=== PATIENT | male | born 1950 | race Caucasian/White ===

== ENCOUNTER 2022-08-12 10:41 | Emergency (ER) | payer MEDICARE, SELFPAY ==
[2022-08-12] VITALS (11 sets, daily range): BP systolic 134–161; BP diastolic 88–127; PULSE 56–65; RESP 16; TEMP 36.2–36.6; O2SAT 95–100; BMI 25.8
--- NOTE | 2022-08-12 11:38 | CRLHL7_ITS ---
For Patients: As a result of the Cures Act, medical imaging exams and procedure reports are released immediately into your electronic medical record. You may view this report before your referring provider. If you have questions, please contact your health care provider. Indication: CLUMSY left arm clumsy and numb. Resolved. History of atrial fibrillation and TIA. Technique: Noncontrast sagittal T1 weighted, axial T2 fast spin echo, FLAIR, and diffusion weighted images of the head. Comparison: 12/18/2020 MRI Findings: Mild patchy regions of increased T2 signal within the periventricular and subcortical white matter of both cerebral hemispheres. Mild cerebral volume loss. Small focus of T2 prolongation and diffusion restriction in the right frontal lobe centrum semiovale consistent with recent ischemic infarct. There are 2 additional lesions that demonstrate faint diffusion signal abnormality and T2 shine through suggestive of chronic infarcts. No evidence of susceptibility artifact to suggest intracranial hemorrhage. Chronic lacunar infarcts in the bilateral cerebrum. No mass effect or midline shift. No hydrocephalus. No suspicious extra-axial collection or acute intracranial hemorrhage. Expected intracranial vascular flow voids are preserved. No hydrocephalus. The paranasal sinuses are clear. The orbits are unremarkable. Findings called to Dr. Hopper at 1:53 pm Impression: 1. Small focus of T2 prolongation and diffusion restriction in the right frontal lobe centrum semiovale consistent with recent ischemic infarct. 2. There are 2 additional lesions that demonstrate T2 prolongation and T2 shine through suggestive of chronic lacunar infarcts. 3. Mild supratentorial white matter changes are non-specific but statistically most likely related to small vessel ischemic disease. Mild cerebral volume loss. Dictated by Christiano Fletcher MD @ 08/12/2022 1:54:17 PM (Electronically Signed)
--- NOTE | 2022-08-12 11:40 | CRLHL7_ITS ---
For Patients: As a result of the Century Cures Act, medical imaging exams and procedure reports are released immediately into your electronic medical record. You may view this report before your referring provider. If you have questions, please contact your health care provider. Indication: Chest pain. Technique: Two-view upright PA and lateral chest x-ray. Comparison: None available Findings: Lungs clear. Heart size is normal. Haley unremarkable. No pleural fluid or pneumothorax. No significant musculoskeletal pathology is identified. Impression: Negative chest x-ray. Dictated by Arturo Burnham MD @ 08/12/2022 12:38:47 PM (Electronically Signed)
[2022-08-12 11:44] LABS: Troponin, Point-of-Care* 0.04 ng/ml (0.01-0.04)
[2022-08-12 11:47] LABS: Basophils Absolute Auto 0.04 K/uL (0.00-0.30); Basophils Percent Auto 0.7 % (0.0-3.0); Eosinophils Percent Auto 1.9 % (0.0-7.0); Hematocrit 46.2 % (37.0-53.0); Hemoglobin* 15.6 gm/dL (13.5-17.5); Immature Granulocytes Abs Auto 0.03 K/uL (0.00-0.30); Immature Granulocytes Pct Auto 0.6 %; Lymphocytes Absolute Auto 1.29 K/uL (0.90-2.90); Lymphocytes Percent Auto 24.2 % (20-44); Mean Corpuscular HGB Conc 34 gm/dL (32-36); Mean Corpuscular Hemoglobin 29 pg (26-34); Mean Corpuscular Volume 87 fL (80-100); Monocytes Percent Auto 8.2 % (0.0-11.0); Neutrophils Absolute Auto 3.44 K/uL (1.7-7.0); Neutrophils Percent Auto 64.4 % (42.0-72.0); Platelet Count* 267 K/uL (140-440); RDW Coefficient of Variation % 14.5 % (11.5-15.5); White Blood Count* 5.34 K/uL (4.50-11.00)
[2022-08-12 11:49] LABS: Slide Review Reflex No
[2022-08-12 12:03] LABS: INR 2.74 (0.91-1.10); Prothrombin Time 30.3 Seconds
--- NOTE | 2022-08-12 12:18 | ED_ITS ---
[facility] - General Adult General Date Seen: 08/12/22 Chief complaint: Chest Pain Stated complaint: Chest pain Time Seen by Provider: 08/12/22 11:21 Source: patient and family History of Present Illness [facility] narrative: Patient is a 71-year-old male who is here at the recommendation of clinic for evaluation of left arm numbness. He has a history of atrial fibrillation as well as TIA a couple of years ago. He tells me that for the past many years, even prior to his TIA, he has had bouts of pain approximately once a month, which start with a cramp in his neck which he says is severe enough to ?get your attention?. This pain will then travel down into his chest, and then either out the sides or out the back. He says when it happens he will just stop what he is doing and rest. After about 20 minutes, the symptoms will go way. It does not seem to be associated with specific activities, it can come on at any time. 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 He will get wavy lines in his vision. He will often get an associated headache, which is not severe. He does not have syncope. He had 1 of these episodes yesterday, which was typical. This was at about 4:00 p.m.. Nothing since then. This morning when he woke up at 6:00 a.m., he noted that his left arm felt numb in its entirety. He describes this as a sensation of the arm feeling like it was asleep. He thought maybe he had slept on it wrong. He does note that the arm also felt may be somewhat clumsy, although he denies overt weakness. These symptoms lasted until about 10:00 a.m.. His says that she did not notice any facial droop or difficulties with his balance, strength, or speech. He called the clinic and was advised to come in. At this time, the arm feels completely normal. He denies any current chest pain, difficulty breathing, nausea. He has not had headache. No current visual disturbances. He does take Coumadin for his atrial fibrillation. He is not able to tell when he is in atrial fibrillation. Related Data Home Medications Medication Instructions Recorded Confirmed escitalopram oxalate 20 mg tablet 20 mg PO DAILY 08/12/22 08/12/22 metoprolol succinate 25 mg 25 mg PO DAILY 08/12/22 08/12/22 tablet,extended release 24 hr nortriptyline 10 mg capsule 20 mg PO DAILY 08/12/22 08/12/22 warfarin 5 mg tablet (Jantoven) 5 mg PO DAILY 08/12/22 08/12/22 Allergies Allergy/AdvReac Type Severity Reaction Status Date / Time No Known Drug Allergies Allergy Verified 08/12/22 10:52 Review of Systems Status of ROS: Reports: 10 or more systems reviewed and unremarkable except as noted in History and below [facility] Social History Smoking Status: Never smoker Do you use any of these nicotine containing products: None Second hand tobacco smoke exposure: No How often do you have a drink containing alcohol: 4 or more times a week How many standard drinks containing alcohol do you have on a typical day: 3 or 4 How often do you have six or more drinks on one occasion: Daily or almost daily AUDIT-C Alcohol total score: 9 Non-prescribed substance use: denies use service: No Exam Narrative: Exam Narrative: Vital signs as noted above. In general, an alert, well-appearing patient. Head: Normocephalic, atraumatic. Eyes: He is blind in the left eye, that pupil is less reactive and that eye is everted. ENT: Mucous membranes are moist. Throat is normal. Tongue is midline. Neck: Supple without lymphadenopathy. Heart: Regular rate and rhythm. No murmur or rub. Lungs: Clear bilaterally. No increased work of breathing, crackles or wheezes. Abdomen: Soft and nontender. No organomegaly. Extremities: Well perfused. No edema. No calf tenderness. Pulses intact. Neurologic: Patient is alert and oriented to person and place. Speech is fluent. Face is symmetric. Moves all extremities equally. Strength is 5 5 in bilateral upper extremities. Sensation is intact to light touch. Cerebellar function is intact by finger-nose testing. Fine motor intact in bilateral upper extremities. Affect: Normal. Skin: Warm and dry. Well perfused. Const: Vital Signs, click to edit/add: Vital Signs - 24 hr 08/12/22 10:55 08/12/22 11:00 08/12/22 11:15 Temperature 97.1 F L Pulse Rate [Pulse Oximeter] 65 61 60 Respiratory Rate 16 16 16 Blood Pressure [Le ft Upper Arm] 153/110 H 153/118 H 147/99 H Pulse Oximetry 100 99 99 Oxygen Delivery Me thod Room Air Room Air Room Air 08/12/22 11:30 08/12/22 11:00 08/12/22 11:45 Temperature Pulse Rate [Pulse Oximeter] 62 58 L Respiratory Rate 16 16 Blood Pressure [Le ft Upper Arm] 161/92 H 149/101 H Pulse Oximetry 99 99 99 Oxygen Delivery Me thod Room Air Room Air 08/12/22 12:00 08/12/22 12:30 08/12/22 13:00 Temperature Pulse Rate [Pulse Oximeter] 58 L 56 L 58 L Respiratory Rate 16 16 16 Blood Pressure [Le ft Upper Arm] 145/107 H 160/108 H 155/100 H Pulse Oximetry 100 99 99 Oxygen Delivery Me thod Room Air Room Air Room Air 08/12/22 13:30 08/12/22 14:00 08/12/22 14:59 Temperature 97.8 F Pulse Rate [Pulse Oximeter] 64 56 L 58 L Respiratory Rate 16 16 16 Blood Pressure [Le ft Upper Arm] 153/127 H 139/98 H 134/88 Pulse Oximetry 95 99 99 Oxygen Delivery Me thod Room Air Room Air Room Air Documenting provider has reviewed patient's vital signs: yes Course Course Hospital Course: Following my initial evaluation, patient had an EKG which by my review showed a normal sinus rhythm. Ventricular rate of 61 beats per minute. No acute ST segment changes. Most prominent symptom I think today is his new left arm numbness which he noted on waking up this morning at 6:00 a.m.. He is seen in the ER at 11:00 a.m., with resolution of his symptoms. Therefore, he is outside the window or need for any acute treatment. His neurologic exam is normal. I do think however that it is prudent to work him up for the possibility of a new TIA. With respect to these episodes of pain in his neck and chest associated with visual disturbances, it is a little difficult to determine exactly what the se might be. I doubt that this is related to his left arm symptomatology today. He has been having these episodes for a number of years on a fairly regular basis, and there have not been any significant related symptoms previously. An initial point of care troponin was 0.04, will check a 2 hour troponin. Overall, labs are unremarkable. Second troponin is likewise negative. INR was therapeutic at 2.7. D-dimer negative. I do not think his symptoms are cardiac with regard to the neck pain that he describes. He has these visual symptoms associated with it, and I wonder whether these represent atypical migraine. He had an MRI of the brain, which I reviewed. He does appear to have some abnormal foci in the frontal lobes, discussion with the radiologist is that these represent acute to subacute areas of ischemia. Radiologist felt that 2 these areas were likely acute, 1 more subacute. He felt that these less likely to be embolic verses lacunar type small-vessel infarctions. Review of the patient's records show that he had an MR I of the brain and MRA of the head and neck in December 2020 when he was seen here he did have less than 50% stenosis of the right carotid artery at that time. MRA of the brain was unremarkable. Patient has continued to feel well without further symptoms while here in the emergency department. I did discuss his case with Dr. Iglesias at [facility]. He felt with the radiology reading of the MRI it would be reasonable to get a CT angiogram to Re visualize the vasculature in the head and neck, but did not feel that needed to be done today. He would recommend anti-platelet therapy at this time, and recommended adding aspirin. We did discuss that new oral anticoagulant plus Plavix or aspirin would be perhaps preferable to warfarin plu s aspirin from a safety standpoint. I have discussed all of this with the patient and his . He notes that Eliquis was prohibitively expensive secondary to his insurance. He has a cardiology appointment in September, discussed with them that they could see if 1 of the other new oral anticoagulants had better coverage through their insurance, and discuss possible switched to a NOAC plus Plavix or aspirin with his strategic marketing manager if so. Recommend follow-up with primary care next week so that a CT angiogram can be arranged. Dr. Iglesias did not feel that admission was needed today, outpatient workup felt to be okay as long as patient was feeling well which he is. Return to the ER at any time for recurrent symptoms or other concerns. Patient and his are comfortable with that plan. Vital Signs Vital signs: Initial Vital Signs Temperature 97.1 F L 08/12/22 10:55 Temperature Source Temporal Artery Scan 08/12/22 10:55 Pulse Rate 65 08/12/22 10:55 Pulse Rhythm 08/12/22 10:55 Pulse Strength 3+ Normal 08/12/22 10:55 Respiratory Rate 16 08/12/22 10:55 Blood Pressure 153/110 H 08/12/22 10:55 Blood Pressure Mean 124 08/12/22 10:55 Blood Pressure Position Supine 08/12/22 10:55 Pulse Oximetry 100 08/12/22 10:55 Oxygen Delivery Method 08/12/22 10:55 Vital Signs Temperature 97.1 F L 08/12/22 10:55 Pulse Rate 65 08/12/22 10:55 Respiratory Rate 16 08/12/22 10:55 Blood Pressure 153/110 H 08/12/22 10:55 Pulse Oximetry 100 08/12/22 10:55 Oxygen Delivery Method 08/12/22 10:55 Temperature 97.8 F 08/12/22 14:59 Pulse Rate 58 L 08/12/22 14:59 Respiratory Rate 16 08/12/22 14:59 Blood Pressure 134/88 08/12/22 14:59 Pulse Oximetry 99 08/12/22 14:59 Oxygen Delivery Method 08/12/22 14:59 Medical Decision Making Lab Data Labs: Lab Results 08/12/22 08/12/22 08/12/22 Range/Units 11:00 11:00 11:00 WBC 5.34 (4.50-11.00) K/uL RBC 5.30 (4.30-5.90) m/uL Hgb 15.6 (13.5-17.5) gm/dL Hct 46.2 (37.0-53.0) % MCV 87 (80-100) fL MCH 29 (26-34) pg MCHC 34 (32-36) gm/dL RDW Coeff of Denise 14.5 (11.5-15.5) % Plt Count 267 (140-440) K/uL Neut % (Auto) 64.4 (42.0-72.0) % Lymph % (Auto) 24.2 (20-44) % [place] % (Auto) 8.2 (0.0-11.0) % Eos % (Auto) 1.9 (0.0-7.0) % Baso % (Auto) 0.7 (0.0-3.0) % Neut # (Auto) 3.44 (1.7-7.0) K/uL Lymph # (Auto) 1.29 (0.90-2.90) K/uL [place] # (Auto) 0.40 (0.00-0.90) K/UL Eos # (Auto) 0.10 (0.00-0.50) K/uL Baso # (Auto) 0.04 (0.00-0.30) K/uL Abs Immat Gran (auto) 0.03 (0.00-0.30) K/uL Imm/Tot Granulo (auto) 0.6 % INR 2.74 H (0.91-1.10) D-Dimer Quant (PE/DVT) < 0.27 (0.00-0.50) ug/ml Sodium 139 (135-149) mmol/L Potassium 4.1 (3.6-5.1) mmol/L Chloride 107 (96-114) mmol/L Carbon Dioxide 25 (20-32) mmol/L BUN 16 (7-30) mg/dL Creatinine 1.0 (0.5-1.5) mg/dL Estimated Creat Clear 76.52 Estimated GFR 81 ml/min Glucose 94 (60-115) mg/dL Calcium 8.9 (8.4-10.6) mg/dL C-Reactive Protein 0.7 (0.5-1.0) mg/dL POC Troponin I (0.01-0.04) ng/ml 08/12/22 08/12/22 Range/Units 11:40 13:30 WBC (4.50-11.00) K/uL RBC (4.30-5.90) m/uL Hgb (13.5-17.5) gm/dL Hct (37.0-53.0) % MCV (80-100) fL MCH (26-34) pg MCHC (32-36) gm/dL RDW Coeff of Denise (11.5-15.5) % Plt Count (140-440) K/uL Neut % (Auto) (42.0-72.0) % Lymph % (Auto) (20-44) % [place] % (Auto) (0.0-11.0) % Eos % (Auto) (0.0-7.0) % Baso % (Auto) (0.0-3.0) % Neut # (Auto) (1.7-7.0) K/uL Lymph # (Auto) (0.90-2.90) K/uL [place] # (Auto) (0.00-0.90) K/UL Eos # (Auto) (0.00-0.50) K/uL Baso # (Auto) (0.00-0.30) K/uL Abs Immat Gran (auto) (0.00-0.30) K/uL Imm/Tot Granulo (auto) % INR (0.91-1.10) D-Dimer Quant (PE/DVT) (0.00-0.50) ug/ml Sodium (135-149) mmol/L Potassium (3.6-5.1) mmol/L Chloride (96-114) mmol/L Carbon Dioxide (20-32) mmol/L BUN (7-30) mg/dL Creatinine (0.5-1.5) mg/dL Estimated Creat Clear Estimated GFR ml/min Glucose (60-115) mg/dL Calcium (8.4-10.6) mg/dL C-Reactive Protein (0.5-1.0) mg/dL POC Troponin I 0.04 0.03 (0.01-0.04) ng/ml Discharge Plan Discharge Clinical Impression: TIA (transient ischemic attack) Patient Disposition: Home, Self-Care Condition: Stable Instructions: Transient Ischemic Attack (ED) Additional Instructions: Primary care follow-up next week. You should have a CT angiogram to evaluate the blood vessels in your head and neck. Your primary doctor can help set this up for you. Take a regular strength aspirin daily. Follow-up with your strategic marketing manager. Consider changing to a new oral anticoagulant plus aspirin or Plavix rather than Coumadin, depending on your insurance. You can discuss this with your strategic marketing manager. If at any time he have recurrent symptoms or new concerns, return to the emergency department. Prescriptions: No Action warfarin [Jantoven] 5 mg tablet 5 mg PO DAILY Label Comments: TAKE 2 TABLETS BY MOUTH EVERY TUESDAY AND 1.5 TABLETS BY MOUTH ALL OTHER DAYS IN EVENING OR DIRECTED nortriptyline 10 mg capsule 20 mg PO DAILY Label Comments: TAKE TWO CAPSULES BY MOUTH AT BEDTIME metoprolol succinate 25 mg tablet extended release 24 hr 25 mg PO DAILY Label Comments: TAKE 1 TABLET BY MOUTH ONCE DAILY escitalopram oxalate 20 mg tablet 20 mg PO DAILY Label Comments: TAKE ONE TABLET BY MOUTH EVERY DAY IN THE MORNING Follow Up/Referrals: Mark Finch MD [Primary Care Provider] - Stand Alone Forms: [email or web address] Info Instructions
[2022-08-12 12:33] LABS: Chloride* 107 mmol/L (96-114); Potassium* 4.1 mmol/L (3.6-5.1); Sodium* 139 mmol/L (135-149)
[2022-08-12 12:36] LABS: Est. Creatinine Clearance* 76.52; Estimated Glomerular Filt Rate 81 ml/min
[2022-08-12 12:37] LABS: Blood Urea Nitrogen* 16 mg/dL (7-30); Calcium* 8.9 mg/dL (8.4-10.6); Carbon Dioxide* 25 mmol/L (20-32); Glucose* 94 mg/dL (60-115)
[2022-08-12 12:40] LABS: C Reactive Protein* 0.7 mg/dL (0.5-1.0)
[2022-08-12 12:51] LABS: D Dimer Quantitative* < 0.27 ug/ml (0.00-0.50)
[2022-08-12 13:56] LABS: Troponin, Point-of-Care* 0.03 ng/ml (0.01-0.04)
--- NOTE | 2022-08-12 15:03 | PC.NURSE ---
Patient was discharged home once neurology was consulted. PIV was taken out and catheter intact. Instructions reviewed and understood by patient and his . He has f/u on tuesday with PCP. All quesitons answered and left ambulatory with .
== END 2022-08-12 15:04 | disposition home or self-care (01) ==
PROVIDERS: Emergency Provider Emergency Medicine; PCP Family Medicine
DX: G45.9 Transient cerebral ischemic attack, unspecified (principal)
CPT/HCPCS: 36415; 70551; 71046; 80048; 84484; 85025; 85379; 85610; 86140; 93005; 99285

== ENCOUNTER 2024-04-18 12:29 | Outpatient (CLI) | payer MEDICARE, SELFPAY ==
--- OUTSIDE RECORDS SUMMARY | 2024-04-18 12:34 | XMS_ITS | Referral Summary ---
Author Organization [facility] Address [address] [place] [address]. [place] [address] Care Team Providers Care Entry Tech Name Role Phone [facility] [place] Primary Care Provider Allergies No known active allergies Medications Medication Sig Dispensed Refills Start Date End Date Status atorvastatin (LIPITOR) 40 MG tablet Take 40 mg by mouth every evening 11/12/2022 Active clopidogrel (PLAVIX) 75 MG tablet Take 75 mg by mouth every evening 12/30/2022 Active escitalopram (LEXAPRO) 20 MG tablet Take 20 mg by mouth every evening 01/21/2023 Active metoprolol succinate ER (TOPROL XL) 25 MG 24 hr tablet Take 25 mg by mouth every evening 01/10/2023 Active nortriptyline (PAMELOR) 10 MG capsule Take 30 mg by mouth At Bedtime 01/21/2023 Active warfarin ANTICOAGULANT (COUMADIN) 5 MG tablet Take 5 mg by mouth every evening 11/11/2022 Active acetaminophen (TYLENOL) 500 MG tablet Take 500-1,000 mg by mouth every 6 hours as needed for mild pain Active losartan (COZAAR) 25 MG tabletIndications:NSTE MA (non-ST elevated myocardial infarction) (H),Hypertension, unspecified type Take 1 tablet (25 mg) by mouth daily for 90 days 90 tablet 02/05/2023 Active Active Problems Problem Noted Date Diagnosed Date Elevated troponin 02/01/2023 Chest pain, unspecified type 02/01/2023 CARDIOVASCULAR SCREENING; LDL GOAL LESS THAN 130 07/05/2010 HTN (hypertension) 07/21/2009 Inguinal hernia 07/21/2009 Social History Tobacco Use Types Packs/Day Years Used Date Smoking Tobacco: Every Day Cigarettes Alcohol Use Standard Drinks/Week Comments Yes 0 (1 standard drink = 0.6 oz pur e alcohol) Adolescent Education Answer Date Record ed Getting School Help Needed Not on file 06/07 Sex and Gender Information Value Date Recorded Sex Assigned at Not on file Gender Identity Not on file Sexual Orientation Not on file Last Filed Vital Signs Vital Sign Reading Time Taken Comments Blood Pressure 135/94 02/04/2023 8:03 AM CDT Pulse 73 02/04/2023 8:03 AM CDT Temperature 36.5 ??C (97.7 ??F) 02/04/2023 8:03 AM CD T Respiratory Rate 16 02/04/2023 8:03 AM CDT Oxygen Saturation 95% 02/04/2023 8:03 AM CDT Inhaled Oxygen Concentration - - Weight 91.1 kg (200 lb 13.4 oz) 02/01/2023 9:31 PM CDT Height 182.9 cm (6') 02/01/2023 9:52 PM CDT Body Mass Index 27.24 02/01/2023 9:31 PM CDT Plan of Treatment Not on file Procedures Procedure Name Priority Date/Time Associated Diagnosis Comments BASIC METABOLIC PANEL Routine 02/02/2023 6:48 AM CDT LIPID REFLEX TO DIRECT LDL PANEL Routine 02/02/2023 6:48 AM CDT from Last 3 Months or Most Recently Relevant to Health Maintenance Results * (ABNORMAL) Lipid panel reflex to direct LDL (02/02/2023 6:48 AM CDT) Cholesterol 287(H) <200 mg/dL 02/02/2023 11:19 AM CDT [facility] Triglycerides 105 <150 mg/dL 02/02/2023 11:19 AM CDT [facility] Direct Measure HDL 68 >=40 mg/dL 02/02/2023 11:19 AM CDT [facility] LDL Cholesterol Calculated 198(H) <=100 mg/dL 02/02/2023 11:19 AM CDT [facility] Non HDL Cholesterol 219(H) <130 mg/dL 02/02/2023 11:19 AM CDT [facility] Blood STRUCTURE OF LEFT UPPER LIMB / Unknown Venipuncture / Unknown 02/02/2023 6:48 AM CDT 02/02/2023 7:02 AM CDT Narrative [facility] - 02/02/2023 11:19 AM CDT Cholesterol Desirable: ??<200 mg/dL Triglycerides Normal: ??Less than 150 mg/dL Borderline High: ??150-199 mg/dL High: ??200-499 mg/dL Very High: ??Greater than or equal to 500 mg/dL Direct Measure HDL Female: ??Greater than or equal to 50 mg/dL Male: ??Greater than or equal to 40 mg/dL LDL Cholesterol Desirable: ??<100mg/dL Above Desirable: ??100-129 mg/dL Borderline High: ??130-159 mg/dL High: ??160-189 mg/dL Very High: ??>= 190 mg/dL Non HDL Cholesterol Desirable: ??130 mg/dL Above Desirable: ??130-159 mg/dL Borderline High: ??160-189 mg/dL High: ??190-219 mg/dL Very High: ??Greater than or equal to 220 mg/dL Pavan Esquivel MD LAB - BLOOD ORDERABL ES [facility] [place] [facility] [address] [facility], Room [address] [place] [id number], [facility] [phone] * (ABNORMAL) Basic metabolic panel (02/02/2023 6:48 AM CDT) Sodium 138 136 - 145 mmol/L 02/02/2023 7:50 AM [facility]T LAB[facility] Potassium 4.2 3.4 - 5.3 mmol/L 02/02/2023 7:50 AM CDT LAB[facility] Chloride 104 98 - 107 mmol/L 02/02/2023 7:50 AM CDT LABORATORY Carbon Dioxide (CO2) 23 22 - 29 mmol/L 02/02/2023 7:50 AM CDT [facility] Anion Gap 11 7 - 15 mmol/L 02/02/2023 7:50 AM CDT [facility] Urea Nitrogen 23.1(H) 8.0 - 23.0 mg/dL 02/02/2023 7:50 AM CDT [facility] Creatinine 0.93 0.67 - 1.17 mg/dL 02/02/2023 7:50 AM CDT [facility] Calcium 9.2 8.8 - 10.2 mg/dL 02/02/2023 7:50 AM CDT [facility] Glucose 103(H) 70 - 99 mg/dL 02/02/2023 7:50 AM CDT [facility] GFR Estimate 88 >60 mL/min/1.7 3m2 02/02/2023 7:50 AM CDT [facility] Comment:eGFR calculated usin 2020 CKD-EPI equation. Blood STRUCTURE OF LEFT UPPER LIMB / Unknown Venipuncture / Unknown 02/02/2023 6:48 AM CDT 02/02/2023 7:03 AM CDT Pavan Esquivel MD LAB - BLOOD ORDERABL ES [facility] [address] Lab (1st floor, no room number) [place] [address], [facility] [phone] from Last 3 Months or Most Recently Relevant to Health Maintenance Advance Directives For more information, please contact: [phone] * Full Code (Latest Code Status on File) Date Activated Date Inactivated Comments 02/01/2023 10:04 PM 02/04/2023 4:03 PM All basic an d advanced life-sustaining interventions are performed as appropriate Question Answer Comments Code status determined by: Discussion with dulce nt/ legal decision maker Care Teams Entry Tech Relationship Specialty Start Date End Date Clinic, [facility] [address] [place] [id number] PCP - General 02/01/23
--- OUTSIDE RECORDS SUMMARY | 2024-04-18 12:34 | XMS_ITS | Encounter Summary ---
Author Organization [facility] Address [facility]0 [facility] [place] [address] Care Team Providers Care Glass Blowing Instructor Name Role Phone Doctor, None Primary Care Provider Niko Peña MD Primary Care Provider [phone] Clinic, [facility] Primary Care Provider Encounter Details Date Type Department Care Team (Late st Contact Info) Description 01/20/2003 [facility] [id number] [place] [address] [phone] Starla Collazo MD [id number] [place] [address] [id number] emergency room encounter (Primary Dx) Social History Tobacco Use Types Packs/Day Years Used Date Smoking Tobacco: Every Day Cigarettes Alcohol Use Standard Drinks/Week Comments Yes 0 (1 standard drink = 0.6 oz pur e alcohol) Sex and Gender Information Value Date Recorded Sex Assigned at Not on file Gender Identity Not on file Sexual Orientation Not on file documented as of this encounter Progress Notes * 01/20/2003 11:59 PM [id number] 00:00 Emergency Department Encounter-BROOKS CLARKE () [Entered: 00:00 Director Of Mechanical Engineering (HIM)] : 54 CHIEF COMPLAINT: Left eye red. HISTORY OF PRESENT ILL NESS: Bethanie Valverde is a 52-year-old male, who presents to the Emergency Department with redness to his left eye. He states he noticed the redness today. He feels some pressure in the region, but no pain. He also notes he has been blind since the age of [age], when he fell on concrete, striking the b ack of his head. He states, the cord to the eye has been severed. The patient denies any history of trauma or foreign body sensation to the eye, and notes no fever, chills, cold symptoms, sinus drai nage, or compression. No ear discomfort or muffled hearing. PAST MEDICAL HISTORY: Remarkable for: 1. 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 2. OCD. IMMUNIZATION S: Not current. HABITS: Does use alcohol and tobacco. Denies recreational drugs, abuse of over-th e-counter medications. SOCIAL HISTORY: He is and employed. REVIEW OF SYSTEMS: Other than as noted above, all systems are unremarkable. FAMILY HISTORY: Noncontributory. PHYSICAL EXAMINATIO N: A 52-year-old male. Blood pressure 157/96, respirations 14, heart rate 72 and regular. Oxygen s aturation 99 percent. Temperature afebrile. HEENT EXAM: Head is atraumatic, normocephalic. Left e ye conjunctival hemorrhage with well-defined limit medially, radiating out in an arc to the temporal aspect of the iris. Anterior chamber appears clear. Left eye is in a lateral strabismus position. N karlo are patent. Sinus nontender. Right eye normal in appearance. Anterior chamber clear. Conjunc tivae are normal. Lids of both eyes are normal with no evidence of ocular adnexal pathology. NECK is supple. Trachea midline. No stridor, drooling, or pooling. DERMATOLOGIC EXAM: Normal texture and turgor. Mucous membranes moist. No icterus or lesions. CLINICAL IMPRESSION: 1. Conjunctival hemo rrhage, spontaneous, left eye. 2. No evidence for foreign body injury. 3. Blind eye, status post remote childhood trauma. DISPOSITION: The patient is discharged home to anticipate the eye to morales null for 7-10 days. He should direct questions to the Emergency Department, follow up with his eye doctor on Tuesday for further reassurance. He should in the meantime avoid rubbing the eye. [id number] BROOKS DAY MD MT: Document: [id number] [place], [place] Name: ABRAM, BETHANIE A EMERGENCY ROOM ENCOUNTER Page 2 of 2 LCN: [id number] DSC: 01/20/2003 [place], [place] Name: MR#: : Admit Date: BETHANIE VALVERDE -87 1950 01/20/2003 Doctor: BROOKS DAY MD EMERGENCY R OOM ENCOUNTER Page 1 of 2 Electronically filed by Anisha Basurto 02/01/2003 9:04 AM documented in this encounter Plan of Treatment Not on file documented as of this encounter Visit Diagnoses Diagnosis emergency room encounter- Primary documented in this encounter Care Teams Glass Blowing Instructor Relationship Specialty Start Date End Date Doctor, MD Jerilyn PCP - General 10/20/01 12/09/09 Niko Chatman MD [address] [place] [address] PCP - General Internal Medicine 12/10/09 01/31/23 [facility], [facility] [address] [place] [address] PCP - General 02/01/23 documented as of this encounter
--- OUTSIDE RECORDS SUMMARY | 2024-04-18 12:34 | XMS_ITS | Clinical Summary ---
Author Organization [facility] Address [address] [place] [address]. [place] [address] Care Team Providers Care Comb Tender Name Role Phone [facility] Primary Care Provider Allergies No known active [...] pain Active losartan (COZAAR) 25 MG tabletIndications:NSTE KS (non-ST elevated myocardial infarction) (H),Hypertension, unspecified type [...] 02/01/2023 9:31 PM CDT Plan of Treatment Health Maintenance Due Date Last Done Comments ADVANCE CARE PLANNING 1950 ANNUAL REVIEW OF HM ORDERS 1950 CT COLONOGRAPHY 1952 FIT 1950 FLEX SIG 1950 sDNA (Cologuard) 1950 Pneumococcal Vaccine: 65+ Years (1 of 2 - PCV) 1958 COLONOSCOPY 1962 COLORECTAL CANCER SCREENING 1962 HEPATITIS C SCREENING 1970 DTAP/TDAP/TD IMMUNIZATION (1 - Tdap) 1977 LUNG CANCER SCREENING 2002 ZOSTER IMMUNIZATION (1 of 2) 2002 RSV VACCINE ( & 60+) (1 - 1-dose 60+ series) 2012 FALL RISK ASSESSMENT 2017 MEDICARE ANNUAL WELLNESS VISIT 12/16/2022 12/16/2021 COVID-19 Vaccine ( - 2022- season) 2023 08/16/2022, 04/26/2022, 2021, Additional history exists PHQ-2 (once per calendar year) 2023 LIPID 02/03/2024 02/02/2023 INFLUENZA VACCINE (#1) 2024 GLUCOSE 02/02/2026 02/02/2023, 01/05, 02/01/2023 HPV IMMUNIZATION Aged Out No longer e ligible based on patient's age to complete this topic IPV IMMUNIZATION Aged Out No longer e ligible based on patient's age to complete this topic MENINGITIS IMMUNIZATION Aged Out No l onger eligible based on patient's age to complete this topic RSV MONOCLONAL ANTIBODY Aged Out No l onger eligible based on patient's age to complete this topic Procedures Procedure Name Priority Date/Time Associated Diagnosis [...] LAB - BLOOD ORDERABL ES [facility] [place] [facility] [address] [facility], [address] [place] [address], [facility] [phone] * (ABNORMAL) Basic metabolic panel (02/02/2023 6:48 [...] - 1.17 mg/dL 02/02/2023 7:50 AM CDT LABORATORY Calcium 9.2 8.8 - 10.2 mg/dL 02/02/2023 7:50 AM CDT LABORATORY Glucose 103(H) 70 - 99 mg/dL 02/02/2023 7:50 AM CDT LABORATORY GFR Estimate 88 >60 mL/min/1.7 3m2 02/02/2023 7:50 AM CDT LABORATORY Comment:eGFR calculated usin g 2020 CKD-EPI equation. Blood STRUCTURE OF LEFT UPPER LIMB / Unknown Venipuncture / Unknown 02/02/2023 6:48 AM CDT 02/02/2023 7:03 AM CDT Pavan Esquivel MD LAB - BLOOD ORDERABL ES [facility] [address] Lab (1st floor, no room number) [place] [address], [facility] [phone] from Last 3 Months or Most Recently Relevant to Health Maintenance Advance Directives For more information, please contact: [phone] * Full Code (Latest Code Status on File) Date Activated Date Inactivated Comments 02/01/2023 10:04 PM 02/04/2023 4:03 PM All basic an d advanced life-sustaining interventions are performed as appropriate Question Answer Comments Code status determined by: Discussion with dulce nt/ legal decision maker Care Teams Comb Tender Relationship Specialty Start Date End Date Clinic, [facility] [address] [place] [id number] PCP - General 02/01/23
--- OUTSIDE RECORDS SUMMARY | 2024-04-18 12:34 | XMS_ITS | Clinical Summary ---
Author Organization [employer] [facility] Address [place], [place] [address] Care Team Providers Care Applications Engineering Manager Name Role Phone Mark Finch MD Primary Care Provider [phone] Allergies No known active allergies Medications Medication Sig Dispensed Refills Start Date End Date Status medication order composerIndications: Takes dietary supplements Vitamin B complex- 1000 mg daily 12/05/2021 Active losartan (COZAAR) 25 mg tabletIndications:CA D in [place] artery Take 1 Tablet (25 mg) by mouth once daily. 90 Tablet 3 05/17/2023 Active metoprolol succinate (Toprol XL) 25 mg Sustained-Release tabletIndications:Is chemic stroke (HC),Other hyperlipidemia,Mixed hyperlipidemia Take 1 Tablet (25 mg) by mouth once daily. 90 Tablet 2 10/31/2023 Active clopidogreL (Plavix) 75 mg tabletIndications:Is chemic stroke (HC) Take 1 Tablet (75 mg) by mouth once daily. 90 Tablet 3 12/16/2023 Active isosorbide mononitrate (IMDUR) 30 mg extended release tablet 24 HourIndications:CAD, multiple vessel Take 1 Tablet (30 mg) by mouth once daily. 90 Tablet 3 12/16/2023 Active nitroglycerin (NITROSTAT) 0.4 mg sublingual tabletIndications:CA D, multiple vessel Place 1 Tablet (0.4 mg) under the tongue every 5 minutes if needed for Chest Pain. Take one tablet every 5 minutes. If no relief after 3 tablets call 911 25 Tablet 3 12/16/2023 Active warfarin (COUMADIN) 5 mg tabletIndications:At rial fibrillation, unspecified type (HC),Ischemic stroke (HC),Anticoagulation monitoring, INR range 2-3 Take by mouth 10 mg (5 mg x 2) every Fri; 5 mg (5 mg x 1) all other days in the evening OR as directed 03/05/2024 Active multivit with min-folic acid (Adult Multivitamin Gummies) 120 mcg chew Chew by mouth. Active sertraline (ZOLOFT) 100 mg tabletIndications:Ob sessive-compulsive disorder, unspecified type,Anxiety Take 1 Tablet (100 mg) by mouth once daily in the morning. 90 Tablet 3 04/09/2024 Active nortriptyline (PAMELOR) 10 mg capsuleIndications:C hronic insomnia TAKE 2-3 CAPSULES BY MOUTH AT BEDTIME 270 Capsule 3 04/09/2024 Active atorvastatin (LIPITOR) 40 mg tabletIndications:Hy perlipidemia, unspecified hyperlipidemia type Take 1 Tablet (40 mg) by mouth once daily. 90 Tablet 3 04/10/2024 Active nortriptyline (PAMELOR) 10 mg capsuleIndications:C hronic insomnia TAKE 2-3 CAPSULES BY MOUTH AT BEDTIME 270 Capsule 11/09/2023 4 Discontinue d(Reorder (E-cancel not sent)) atorvastatin (LIPITOR) 40 mg tabletIndications:Hy perlipidemia, unspecified hyperlipidemia type Take 1 Tablet (40 mg) by mouth once daily. 90 Tablet 3 12/16/2023 4 Discontinue d(Reorder (E-cancel not sent)) sertraline (ZOLOFT) 100 mg tabletIndications:Ob sessive-compulsive disorder, unspecified type,Anxiety TAKE ONE TABLET BY MOUTH EVERY MORNING 90 Tablet 03/08/2024 4 Discontinue d(Reorder (E-cancel not sent)) Active Problems Problem Noted Date Diagnosed Date Glenohumeral arthritis, right 03/06/2024 Atherosclerosis of [place] co ronary artery with angina pectoris, unspecified whether [place] or transplanted heart 10/19/2023 CAD, multiple vessel 10/01/2022 Nuclear senile cataract of both eyes 12/16/2021 Presbyopia 12/16/2021 Hyperopia of left eye 12/16/2021 Exotropia of left eye 12/16/2021 Vision loss, left eye 12/16/2021 Optic atrophy of left eye 12/16/2021 Mixed obsessional thoughts and acts 12/16/2021 Anxiety 12/16/2021 Atrial fibrillation, unspecified type 2021 Anticoagulation monitoring, INR range 2-3 2021 Intermittent atrial fibrillation 10/04/2021 Ischemic stroke 12/19/2020 Lymphoma 01/05/2019 Overview: 1991. 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 Epistaxis, recurrent 08/31/2016 Non-recurrent bilateral ingu inal hernia without obstruction or gangrene 03/24/2015 Mass of lip 03/24/2015 HTN (hypertension) 07/21/2009 Inguinal hernia 07/21/2009 Encounters Date Type Department Care Team Description 04/12/2024 Telephone [facility] [address] [place] [address] Mark Finch MD Procedure (CT) 04/11/2024 Orders Only [facility] Scanner 1 scan: (1-Ord) [facility] 04/10/2024 2:10 PM CDT Office Visit [facility] [address] [place] [address] Mark Finch MD Medication Management 04/10/2024 Travel 04/09/2024 11:15 AM CDT Orders Only [facility] [address] [place] [address] Lab[facility] 04/09/2024 Anticoagulation (warfarin) [facility] [address] [place] [address] Clinic[facility] Anticoagulation 04/09/2024 Nurse Triage [facility] [address] [place] [address] Mark Finch MD Medication Management 04/05/2024 Telephone [facility] [address] [place] [address] Mark Finch MD Referral (OPTOMETRY/OPHTHALMOL OGY REFERRAL FOR EYE SERVICES [[id number]]) 03/21/2024 Procedure Only [facility] [address] [place] [address] Device Check (Carelink LINQ Transmission ) 03/16/2024 11:00 AM CDT Office Visit [facility] Eye Services [address] [place] [address] Mayur Caldwell, OD Eye Exam (CEE) 03/16/2024 10:45 AM CDT Orders Only [facility] [address] [place] [address] Lab[facility] 03/16/2024 Anticoagulation (warfarin) [facility] [address] [place] [address] Clinic[facility] Anticoagulation 03/16/2024 Travel 03/07/2024 Refill [facility] [address] [place] [address] Mark Finch MD Refill Request (Sertraline) 03/06/2024 10:25 AM CDT Office Visit [facility] [address] [place] [address] Mark Finch MD Heart Problem (Chest pain); Concerns (Vision concerns/changes since medication change, x2 months) 03/05/2024 1:45 PM CDT Orders Only [facility] [address] [place] [address] Lab[facility] 03/05/2024 Anticoagulation (warfarin) [facility] [address] [place] [address] Clinic[facility] Anticoagulation 03/05/2024 Travel 02/10/2024 Refill [facility] [address] [place] [address] Mark Finch MD Refill Request (Warfarin) 01/28/2024 Anticoagulation (warfarin) [facility] [address] [place] [address] Clinic, [facility] Inr Anticoagulation 01/27/2024 2:00 PM CDT Orders Only [facility] [address] [place] [address] Lab[facility] 01/27/2024 Travel 01/20/2024 Refill [facility] [address] [place] [address] Mark Finch MD Refill Request (Warfarin) 01/20/2024 Refill [facility] [address] [place] [address] Elizabeth Galvan MD Refill Request (Atorvastatin) from Last 3 Months Immunizations Name Administration Dates Next Due COVID-19 Vaccine Spikevax (M oderna 50mcg/0.5mL) 12YO+ [id number] Formula PF 08/19/2023 COVID-19 vaccine (Moderna 100mcg/0.5mL) PF, MDV 05/06/2021,04/08/2021 COVID-19 vaccine (Moderna 50 mcg/0.5mL) 12YO+ BIVALENT PF, MDV 08/16/2022 COVID-19 vaccine (Moderna Tom marianne 50mcg/0.25mL) PF, MDV 04/26/2022,2021 Family History Medical History Relation Name Comments Alcoholism Brother Alcoholism Father Heart Disease Maternal Grandmother Heart Disease Mother Cancer Paternal Grandfather Alcoholism Sister Relation Name Status Comments Brother Father Maternal Grandmother Mother Alive Paternal Grandfather Sister Social History Tobacco Use Types Packs/Day Years Used Date Smoking Tobacco: Former Cigarettes Q uit: 2012 Passive Smoke Exposure: Past Smokeless Tobacco: Never Tobacco Cessation:Counseling Given: Not Answered Comments:of and on Alcohol Use Standard Drinks/Week Comments Yes 7 (1 standard drink = 0.6 oz pur e alcohol) 1-3 beers nightly PHQ-2 Answer Date Recorded PHQ-2 TOTAL SCORE 5 08/19/2023 Social Connections Answer Date Recorded Frequency of Communication with Friends and Fami ly 0 03/06/2024 Financial Resource Strain Answer Date R ecorded Difficulty of Paying Living Expenses 3 03/06/2024 Difficulty of Paying Living Expenses Not on file 03/06/2024 Food Insecurity Answer Date Recorded Worried About Running Out of Food in the Last Ye ar 1 03/06/2024 Transportation Needs Answer Date Record ed Lack of Transportation (Medical) 1 03/06/2024 Housing Stability Answer Date Recorded Unable to Pay for Housing in the Last Year 1 03/06/2024 Sex and Gender Information Value Date Recorded Sex Assigned at Not on file Gender Identity Not on file Sexual Orientation Not on file Obstetrics History Last Filed Vital Signs Vital Sign Reading Time Taken Comments Blood Pressure 130/88 04/10/2024 2:20 PM CDT Pulse 59 04/10/2024 2:20 PM CDT Temperature 36.1 ??C (97 ??F) 11/02/2022 12:46 PM LEAD GENERATION SPECIALIST Respiratory Rate 22 04/09/2024 12:00 PM CDT Oxygen Saturation 99% 04/10/2024 2:20 PM CDT Inhaled Oxygen Concentration - - Weight 93.3 kg (205 lb 9.6 oz) 04/10/2024 2:20 P M CDT Height 179.5 cm (5' 10.67) 12/05/2023 10:57 AM CDT Body Mass Index 28.94 12/05/2023 10:57 AM CDT Plan of Treatment Upcoming Encounters Date Type Department Care Team (Late st Contact Info) Description 06/21/2024 Procedure Only [facility] [address] [place] [phone] 07/17/2024 1:30 PM LEAD GENERATION SPECIALIST Office Visit [facility] [address] [place] [phone] Doris Schilling MBBS [address] [place], [place] [phone] Health Maintenance Due Date Last Done Comments Pneumococcal series for age 65+ (1 of 2 - PCV) 1958 Tdap 1963 Hepatitis C screening for ag e 18-79 1970 Zoster (shingles) series for age 50+ (1 of 2) 1971 Tetanus booster 1972 Colonoscopy through age 75 1997 COVID-19 vaccine series (2022- season) 2023 08/19/2023, 08/16/2022, 04/26/2022, Additional history exists Influenza for age 65+ 05/06/2024 Depression screening for age 12+ 08/19/2024 08/19/2023, 03/04/2023, 02/19/2022, Additional history exists Medicare Wellness for age 65+ 08/19/2024, 12/16/2021, 01/05/2019 BMI (ht and wt on same day) for age 18+ 12/04/2024 12/05/2023, 08/19/2023, 06/07/2023, Additional history exists Lipids for age 45-75 10/08/2027 10/08/2022, 01/29/2022, 11/02/2021, Additional history exists AAA screening age 65-74 Completed 03/16/2023 Procedures Procedure Name Priority Date/Time Associated Diagnosis Comments SCAN-EYE EXAM 04/11/2024 12:00 AM CDT INR,POCT Routine 04/09/2024 11:41 AM CDT Atrial fibrillation, unspecified type (HC) Ischemic stroke (HC) Anticoagulation monitoring, INR range 2-3 INR,POCT Routine 03/16/2024 10:41 AM CDT Atrial fibrillation, unspecified type (HC) Ischemic stroke (HC) Anticoagulation monitoring, INR range 2-3 INR,POCT Routine 03/05/2024 1:40 PM CDT Atrial fibrillation, unspecified type (HC) Ischemic stroke (HC) Anticoagulation monitoring, INR range 2-3 INR,POCT Routine 01/27/2024 2:13 PM CDT Atrial fibrillation, unspecified type (HC) Ischemic stroke (HC) Anticoagulation monitoring, INR range 2-3 US ABD AORTA SCREENING Routine 03/16/2023 9:27 AM CDT Screening for AAA (abdominal aortic aneurysm) LC LIPID PANEL AND CHOL/HDL RATIO Routine 10/08/2022 2:46 PM LEAD GENERATION SPECIALIST Mixed hyperlipidemia Other hyperlipidemia from Last 3 Months or Most Recently Relevant to Health Maintenance Results * SCAN-EYE EXAM (04/11/2024 12:00 AM CDT) Scanner OTHER * (ABNORMAL) INR,POCT (04/09/2024 11:41 AM CDT) Only the most recent of4 resultswithin the time period is included. INR 1.6(H) <1.3 04/09/2024 11:47 AM CDT [facility] Blood BLOOD SPECIMEN / Unknown Capillary / Unknown 04/09/2024 11:41 AM CDT 04/09/2024 11:41 AM CDT Narrative [facility] - 04/09/2024 11:47 AM CDT ?Therapeutic Range 2.0-3.0 for most anticoagulated patients 2.5-3.5 or 4.0 for high risk patients Mark Finch MD LABORATORY Performing Organization Address City/State/[facility] Co de Phone Number [facility] [address] [place] [address], * US ABD AORTA SCREENING (03/16/2023 9:27 AM CDT) Anatomical Region Laterality Modality Abdomen, AORTA Ultrasound 03/16/2023 9:27 AM CDT Impressions 03/16/2023 9:36 AM CDT 1. ??No abdominal aortic aneurysm. Narrative 03/16/2023 9:36 AM CDT For Patients: As a result of the Cures Act, medical imaging exams and procedure reports are released immediately into your electronic medical record. You may view this report before your referring provider. If you have questions, please contact your health care provider. EXAM: US ABD AORTA SCREENING LOCATION: [facility] DATE: 03/16/2023 INDICATION: Screening For Aaa (abdominal Aortic Aneurysm) COMPARISON: None. TECHNIQUE: Transverse and longitudinal images of the aorta. Color flow and spectral Doppler with waveform analysis. FINDINGS: No abdominal aortic aneurysm. ??There is mild atheromatous plaque in the abdominal aorta. MEASUREMENTS: Proximal Aorta: 2.8 x 2.8 cm. Mid Aorta: 2.2 x 2.2 cm. Distal Aorta: 1.4 x 1.6 cm. Right Common Iliac Artery: 1.0 x 0.9 cm. Left Common Iliac Artery: 0.9 x 1.0 cm. Procedure Note Fco Jackson MD - 03/16/2023 For Patients: As a result of the Cures Act, medical imagingexams and procedure reports are released immediately into your electronicmedical record. You may view this report before your referring provider.If you have questions, please contact your health care provider. EXAM: US ABD AORTA SCREENING LOCATION: [facility] DATE: 03/16/2023 INDICATION: Screening For Aaa (abdominal Aortic Aneurysm) COMPARISON: None. TECHNIQUE: Transverse and longitudinal images of the aorta. Color flow andspectral Doppler with waveform analysis. FINDINGS: No abdominal aortic aneurysm. There is mild atheromatous plaquein the abdominal aorta. MEASUREMENTS: Proximal Aorta: 2.8 x 2.8 cm. Mid Aorta: 2.2 x 2.2 cm. Distal Aorta: 1.4 x 1.6 cm. Right Common Iliac Artery: 1.0 x 0.9 cm. Left Common Iliac Artery: 0.9 x 1.0 cm. IMPRESSION: 1. No abdominal aortic aneurysm. Savanah ALBARADO US * (ABNORMAL) LC LIPID PANEL AND CHOL/HDL RATIO (10/08/2022 2:46 PM LEAD GENERATION SPECIALIST) [facility] Cholesterol, Total 370(H) 100 - 199 mg/dL 10/11/2022 6:07 PM LEAD GENERATION SPECIALIST [facility] Triglycerides 194(H) 0 - 149 mg/dL 10/11/2022 6:07 PM LEAD GENERATION SPECIALIST [facility] HDL Cholesterol 69 >39 mg/dL 3 6:07 PM [facility] ([facility]) VLDL Cholesterol Rikki 39 5 - 40 mg/dL 10/11/2022 6:07 PM [facility] LDL Chol Calc ([facility]) 262(H) 0 - 99 mg/dL 10/11/2022 6:07 PM [facility] Lipid Comment: Comment 10/11/2022 6:07 PM [facility] Comment: Possible Familial Hypercholesterolemia. FH should be suspected when fasting LDL cholesterol is above 189 mg/dL or non-HDL cholesterol is above 219 mg/dL. A family history of high cholesterol and heart disease in 1st degree relatives should be collected. J Clin Lipidol 2011;5:133-140 T. Chol/HDL Ratio 5.4(H) 0.0 - 5.0 ratio 10/11/2022 6:07 PM [facility] Comment: ?T. Chol/HDL Ratio ?Men ??Women ?1/2 Avg.Risk ??3.4 ?3.3 ?Avg.Risk ??5.0 ?4.4 ? 2X Avg.Risk ??9.6 ?7.1 ? 3X Avg.Risk 23.4 ?? 11.0 Blood BLOOD SPECIMEN / Unknown Venipuncture / Unknown 10/08/2022 2:46 PM LEAD GENERATION SPECIALIST 10/08/2022 2:46 PM LEAD GENERATION SPECIALIST Narrative [facility] - 10/11/2022 6:07 PM LEAD GENERATION SPECIALIST Performed at: ??[address] - [address] ??[id number] [employer] Sales Associate: Sidney Kim MD, Phone: ??[phone] Elizabeth Galvan MD SEND OUTS [facility] ([facility]) [address] [place] [address], from Last 3 Months or Most Recently Relevant to Health Maintenance Advance Directives Documents on File Type Date Recorded Patient Inspector [employer] Wafer Expl anation Healthcare Directive 09/29/2022 023 * Full Code (Latest Code Status on File) Date Activated Date Inactivated Comments 10/22/2022 2:39 PM 10/22/2022 8:19 PM Question Answer Comments Code Status Discussion: Reviewed Preferences Care Teams Applications Engineering Manager Relationship Specialty [place] [address] [place] [address] PCP - General Family Practice 11/30/21
--- NOTE | 2024-04-18 13:00 | CRLHL7_ITS ---
For Patients: As a result of the Century Cures Act, medical imaging exams and procedure reports are released immediately into your electronic medical record. You may view this report before your referring provider. If you have questions, please contact your health care provider. INDICATION: Shortness of breath. History of lymphoma. TECHNIQUE: Noncontrast CT images of the chest. COMPARISON: Chest radiographs 08/12/2022. FINDINGS: No focal consolidation, pleural effusion, or pneumothorax. Solid 4 mm nodule right lower lobe (series 3 image 63). Solid 2 mm nodule left lower lobe (series 3 image 63). The heart size is normal. No pericardial effusion. Coronary artery atherosclerotic calcifications. No mediastinal or hilar lymphadenopathy. Aneurysmal dilatation of the ascending thoracic aorta measuring 4.6 cm. Limited images through the upper abdomen are unremarkable. Multilevel thoracic spondylosis. Diffuse idiopathic skeletal hyperostosis. No aggressive osseous lesions. IMPRESSION: 1. No acute abnormality in the chest. No pathologically enlarged lymph nodes. 2. Aneurysmal dilatation of the ascending thoracic aorta. 3. Solid 4 mm pulmonary nodule in the right lower lobe. Follow-up chest CT could be considered in 12 months. Please note that all CT scans at this facility use dose modulation, iterative reconstruction, and/or weight-based dosing when appropriate to reduce radiation dose to as low as reasonably achievable. Dictated by Torrey Frank MD @ 04/18/2024 5:35:07 PM (Electronically Signed)
== END 2024-04-18 12:30 | disposition home or self-care (01) ==
PROVIDERS: PCP Family Medicine; Visit Provider Family Medicine
DX: R06.02 Shortness of breath (principal); I71.21 Aneurysm of the ascending aorta, without rupture; R91.8 Other nonspecific abnormal finding of lung field; C85.90 Non-Hodgkin lymphoma, unspecified, unspecified site; Z87.891 Personal history of nicotine dependence
CPT/HCPCS: 71250

== ENCOUNTER 2025-01-05 11:42 | Emergency (ER) | payer MEDICARE, SELFPAY ==
[2025-01-05] VITALS (11 sets, daily range): BP systolic 126–151; BP diastolic 86–98; PULSE 53–57; RESP 10–29; TEMP 35.9; O2SAT 80–99; BMI 27.9
--- OUTSIDE RECORDS SUMMARY | 2025-01-05 11:45 | XMS_ITS | Encounter Summary ---
Author Organization [place] Address [facility] [place] [address] Care Team Providers Care Aerosol Line Operator Name Role Phone Doctor, None Primary Care Provider Niko Peña MD Primary Care Provider [phone] Clinic, [facility] Primary Care Provider Encounter Details Date Type Department Care Team (Late st Contact Info) Description 01/20/2003 [facility] [id number] [place] [phone] [place]azo MD [id number] [place] [phone] emergency room encounter (Primary Dx) Social History Tobacco Use Types Packs/Day Years Used Date Smoking Tobacco: Every Day Cigarettes Alcohol Use Standard Drinks/Week Comments Yes 0 (1 standard drink = 0.6 oz pur e alcohol) Sex and Gender Information Value Date Recorded Sex Assigned at Not on file Legal Sex Male 2:58 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 [...] eye. [id number] BROOKS DAY MD [place]: Document: [id number] [place], [place] Name: BETHANIE VALVERDE EMERGENCY ROOM ENCOUNTER Page 2 of 2 LCN: [id number] DSC: 01/20/2003 [place], [place] Name: MR#: : Admit Date: BETHANIE VALVERDE [id number] 01/20/2003 Doctor: BROOKS DAY MD EMERGENCY R OOM ENCOUNTER Page 1 of 2 Electronically filed by Anisha Basurto 02/01/2003 9:04 AM documented in this encounter Plan of Treatment Not on file documented as of this encounter Visit Diagnoses Diagnosis emergency room encounter- Primary documented in this encounter Care Teams Aerosol Line Operator Relationship Specialty Start Date End Date Doctor, MD Jerilyn PCP - General 10/20/01 12/09/09 Niko Chatman MD [address] [place] [address] PCP - General Internal Medicine 12/10/09 01/31/23 Bella Garcia [address] [place] [address] PCP - General 02/01/23 documented as of this encounter
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
--- OUTSIDE RECORDS SUMMARY | 2025-01-05 11:45 | XMS_ITS | Clinical Summary ---
Author Organization [facility] Address [address] [place] [address]. [place] [address] Care Team Providers Care Meat Packer Name Role Phone [facility] [place] Primary Care Provider Allergies No known active allergies Medications atorvastatin (LIPITOR) 40 MG tablet Take 40 mg by mouth every evening 3 Active clopidogrel (PLAVIX) 75 MG tablet Take 75 mg by mouth every evening 3 Active escitalopram (LEXAPRO) 20 MG tablet Take 20 mg by mouth every evening 3 Active metoprolol succinate ER (TOPROL XL) 25 MG 24 hr tablet Take 25 mg by mouth every evening 3 Active nortriptyline (PAMELOR) 10 MG capsule Take 30 mg by mouth At Bedtime 3 Active warfarin ANTICOAGULANT (COUMADIN) 5 MG tablet Take 5 mg by mouth every evening 3 Active acetaminophen (TYLENOL) 500 MG tablet Take 500-1,000 mg by mouth every 6 hours as needed for mild pain Active losartan (COZAAR) 25 MG tabletIndications: NSTEMI (non-ST elevated myocardial infarction) (H),Hypertension, unspecified type Take 1 tablet (25 mg) by mouth daily for 90 days 90 tablet 3 Active Active Problems Problem Noted Date Diagnosed [...] on file Legal Sex Male 2:58 AM MEAT PACKER Gender Identity Not on file Sexual Orientation Not on file Last Filed Vital Signs Vital Sign Reading Time Taken Comments Blood Pressure 135/94 02/04/2023 8:03 AM CDT Pulse 73 02/04/2023 8:03 AM CDT Temperature 36.5 C (97.7 F) 02/04/2023 8:03 AM CDT Respiratory Rate 16 02/04/2023 8:03 AM CDT [...] 1952 FLEX SIG 1952 sDNA (Cologuard) 1952 COLONOSCOPY 1962 COLORECTAL CANCER SCREENING 1962 HEPATITIS C SCREENING 1970 Pneumococcal Vaccine: 50+ Years (1 of 2 - PCV) 1971 DTAP/TDAP/TD IMMUNIZATION (1 - Tdap) 1977 LUNG CANCER SCREENING 2002 ZOSTER IMMUNIZATION (1 of 2) 2002 RSV VACCINE (1 - Risk 60-74 years 1-dose series) 2012 FALL RISK ASSESSMENT 2017 MEDICARE ANNUAL WELLNESS VISIT 12/16/2022 12/16/2021 BMP 02/03/2024 02/02/2023, 02/01/2023 LIPID 02/03/2024 02/02/2023 COVID-19 Vaccine ( season) 2024 08/16/2022, 04/26/2022, 2021, Additional history exists PHQ-2 (once per calendar year) 2024 INFLUENZA VACCINE (Season Ended) 2025 DIABETES SCREENING 02/02/2026 02/02/2023, 0 02/02/2023, 02/01/2023 HPV IMMUNIZATION Aged Out No longer e ligible based on patient's age to complete this topic MENINGITIS IMMUNIZATION Aged Out No l onger eligible based on patient's age to complete this topic Procedures Procedure Name Priority Date/Time Associated Diagnosis Comments LIPID REFLEX TO DIRECT LDL PANEL Routine 02/02/2023 6:48 AM CDT BASIC METABOLIC PANEL Routine 02/02/2023 6:48 AM CDT from [...] - 02/02/2023 11:19 AM CDT Cholesterol Desirable: <200 mg/dL Triglycerides Normal: Less than 150 mg/dL Borderline High: 150-199 mg/dL High: 200-499 mg/dL Very High: Greater than or equal to 500 mg/dL Direct Measure HDL Female: Greater than or equal to 50 mg/dL Male: Greater than or equal to 40 mg/dL LDL Cholesterol Desirable: <100mg/dL Above Desirable: 100-129 mg/dL Borderline High: 130-159 mg/dL High: 160-189 mg/dL Very High: >= 190 mg/dL Non HDL Cholesterol Desirable: 130 mg/dL Above Desirable: 130-159 mg/dL Borderline High: 160-189 mg/dL High: 190-219 mg/dL Very High: Greater than or equal to 220 mg/dL Pavan Esquivel MD LAB - BLOOD ORDERABLES Final Res ult U LABORATORY [facility] [place] [facility] [address] [facility], [address] [place] [id number], [facility] [phone] * (ABNORMAL) Basic metabolic panel (02/02/2023 6:48 AM CDT) [facility] Sodium 138 136 - 145 mmol/L 02/02/2023 [...] AM CDT [facility] Comment:eGFR calculated usin g 2020 CKD-EPI equation. Blood STRUCTURE OF LEFT UPPER LIMB / Unknown Venipuncture / Unknown 02/02/2023 6:48 AM CDT 02/02/2023 7:03 AM CDT Pavan Esquivel MD LAB - BLOOD ORDERABLES Final Res ult [facility] [address] (1st floor, no room number) [place] [address], [facility] [phone] from Last 3 Months or Most Recently Relevant to Health Maintenance Insurance [facility] MEDICARE Advance Directives For more information, please contact: [phone] * Full Code (Latest Code Status on File) Date Activated Date Inactivated Comments 02/01/2023 10:04 PM 02/04/2023 4:03 PM All basic an d advanced life-sustaining interventions are performed as appropriate Question Answer Comments Code status determined by: Discussion with dulce nt/ legal decision maker Care Teams Meat Packer Relationship Specialty Start Date End Date Clinic, [facility] [address] [place] [address] PCP - General 02/01/23
--- NOTE | 2025-01-05 12:22 | CRLHL7_ITS ---
For Patients: As a result of the Century Cures Act, medical imaging exams and procedure reports are released immediately into your electronic medical record. You may view this report before your referring provider. If you have questions, please contact your health care provider. Indication: Vertigo. Technique: Noncontrast CT images of the brain. Comparison: MRI brain 08/12/2022. Findings: Mild diffuse cerebral volume loss. No mass effect or midline shift. Ernst-white differentiation is maintained. No acute intracranial hemorrhage or pathologic extra-axial fluid collection. Suggested mild chronic microvascular ischemic changes. Intracranial atherosclerotic calcifications. Thinning of the right ocular lens. No calvarial fracture. The paranasal sinuses and mastoid air cells are clear. Impression: No acute intracranial hemorrhage or mass effect. Please note that all CT scans at this facility use dose modulation, iterative reconstruction, and/or weight-based dosing when appropriate to reduce radiation dose to as low as reasonably achievable. Dictated by Torrey Frank MD @ 01/05/2025 1:11:23 PM (Electronically Signed)
--- NOTE | 2025-01-05 12:23 | ED.DIZZY ---
HPI - Dizziness General Chief Complaint: Dizziness/Vertigo Stated Complaint: Not feeling well Time Seen by Provider: 01/05/25 11:49 History of Present Illness HPI Narrative: This 74-year-old male comes in reporting vertigo symptoms have began yesterday. He states that he has significant symptoms if he is up and about and moving his head but has no symptoms if he is remaining still in a lying position. He does not report any hearing changes. Does not have any unilateral neurologic deficits. He arrives here with normal vital signs. Related Data Home Medications ?Medication ?Instructions ?Recorded ?Confirmed escitalopram oxalate 20 mg tablet 20 mg PO DAILY 08/12/22 01/05/25 metoprolol succinate 25 mg 25 mg PO DAILY 08/12/22 01/05/25 tablet,extended release 24 hr nortriptyline 10 mg capsule 20 mg PO DAILY 08/12/22 01/05/25 warfarin 5 mg tablet (Jantoven) 5 mg PO DAILY 08/12/22 01/05/25 atorvastatin 40 mg tablet 40 mg PO DAILY 01/05/25 01/05/25 clopidogrel 75 mg tablet 75 mg PO DAILY 01/05/25 01/05/25 isosorbide mononitrate 30 mg 30 mg PO DAILY 01/05/25 01/05/25 tablet,extended release 24 hr losartan 25 mg tablet 25 mg PO DAILY 01/05/25 01/05/25 sertraline 100 mg tablet 100 mg PO QAM 01/05/25 01/05/25 Previous Rx's ?Medication ?Instructions ?Recorded meclizine 25 mg tablet 25 mg PO QID #20 tabs 01/05/25 ondansetron HCl 4 mg tablet 4 mg PO Q6H #10 tabs 01/05/25 Allergies Allergy/AdvReac Type Severity Reaction Status Date / Time No Known Drug Allergies Allergy Verified 08/12/22 10:52 Review of Systems Status of ROS: Reports: 10 or more systems reviewed and unremarkable except as noted in History and below Narrative: Constitutional: No fevers, no weight gain or loss. Eyes: No discharge. No vision changes. HENT: No congestion, no sore throat, no ear pain. Cardiovascular: No chest pain, no palpitations. Respiratory: No shortness of breath, no wheezes, no cough. Gastrointestinal: No abdominal pain, no vomiting, no diarrhea. Genitourinary: No dysuria, no hematuria. Musculoskeletal: Normal range of motion. Skin: No rashes, no pruritis. Neurological: No weakness, sensory change, speech change. Vertigo symptoms as described above. Endo/Heme/Allergies: No bruising or bleeding. No polydipsia. Pysch: no suicidality, no anxiety, no insomnia. All other systems reviewed and are negative. [facility] Social History Smoking Status: Never smoker Do you use any of these nicotine containing products: None Second hand tobacco smoke exposure: No How often do you have a drink containing alcohol: 4 or more times a week How many standard drinks containing alcohol do you have on a typical day: 3 or 4 How often do you have six or more drinks on one occasion: Daily or almost daily AUDIT-C Alcohol total score: 9 Non-prescribed substance use: denies use service: No Exam Narrative: Exam Narrative: Constitutional: Well-developed, well-nourished, no acute distress. HEENT: Normocephalic, atraumatic. Neck: Normal range of motion. Nontender. Supple. Heart: Regular. No murmurs. Normal rate. Intact distal pulses. Lungs: Clear to auscultation. No chest discomfort. No wheezes, rhonchi, or rales. Abdomen: Normal bowel sounds. Nontender. No rebound tenderness. Genitalia: Deferred. Back: No midline tenderness. Normal range of motion. Extremities: Normal range of motion. No injury. Skin: Intact. No rash. Warm. No erythema or pallor. Neurologic: No altered sensation. No weakness. Alert and oriented. No facial asymmetry. Tongue is midline. [id number] is normal. No pronator drift. Hack Saw Operator strength is equal bilaterally. Able to raise each leg from the bed. Psychiatric: No suicidality. No anxiety or depression. No insomnia. Nursing notes and vitals signs are reviewed. Const: Vital Signs, click to edit/add: Vital Signs - 24 hr 01/05/25 11:47 Temperature 96.7 F L Pulse Rate [Pulse Oximeter] 57 L Respiratory Rate 20 Blood Pressure [Ri ght Upper Arm] 126/86 Pulse Oximetry 99 Oxygen Delivery Me thod Room Air Course Vital Signs Vital signs: Initial Vital Signs Temperature 96.7 F L 01/05/25 11:47 Temperature Source Temporal Artery Scan 01/05/25 11:47 Pulse Rate 57 L 01/05/25 11:47 Respiratory Rate 20 01/05/25 11:47 Blood Pressure 126/86 01/05/25 11:47 Blood Pressure Mean 99 01/05/25 11:47 Blood Pressure Position Sitting 01/05/25 11:47 Pulse Oximetry 99 01/05/25 11:47 Oxygen Delivery Method Room Air 01/05/25 11:47 Vital Signs Temperature 96.7 F L 01/05/25 11:47 Pulse Rate 57 L 01/05/25 11:47 Respiratory Rate 20 01/05/25 11:47 Blood Pressure 126/86 01/05/25 11:47 Pulse Oximetry 99 01/05/25 11:47 Oxygen Delivery Method Room Air 01/05/25 11:47 Temperature 96.7 F L 01/05/25 11:47 Pulse Rate 57 L 01/05/25 11:47 Respiratory Rate 20 01/05/25 11:47 Blood Pressure 126/86 01/05/25 11:47 Pulse Oximetry 99 01/05/25 11:47 Oxygen Delivery Method Room Air 01/05/25 11:47 Medications Administered Medications: Discontinued Medications Generic Name Dose Route Start Last Admin Trade Name Freq PRN Reason Stop Dose Admin Meclizine HCl 25 mg 01/05/25 12:22 01/05/25 12:36 Meclizine Hcl 25 Mg Tablet PO 01/05/25 12:23 25 mg ONCE ONE Administration Ondansetron HCl 4 mg 01/05/25 12:22 01/05/25 12:36 Ondansetron Odt 4 Mg Tab PO 01/05/25 12:23 4 mg ONCE ONE Administration MDM - Dizziness MDM Narrative Medical decision making narrative: This patient comes in with vertigo symptoms as described above. His symptoms do not appear to be related to a central process as his vertigo completely resolves if he remains still. Additionally CT imaging of his head returns with no acute findings. The patient's neurologic exam is also completely normal. He did receive oral doses of meclizine and Zofran and feels much better. He was able to get up and ambulate without difficulty. Imaging Data CT scan - head: Radiologist's impression: No acute intracranial hemorrhage or mass effect. Discharge Plan Discharge Clinical Impression: Acute vestibular neuronitis Patient Disposition: Home w/ Parent or Adult Condition: Improved Additional Instructions: Take medication as needed and directed. Increase activity as tolerated. Follow up with MD return if worsening. Prescriptions: New ondansetron HCl 4 mg tablet 4 mg PO Q6H Qty: 10 0RF meclizine 25 mg tablet 25 mg PO QID Qty: 20 0RF No Action warfarin [Jantoven] 5 mg tablet 5 mg PO DAILY Patient Comments: TAKE 2 TABLETS BY MOUTH EVERY TUESDAY AND 1.5 TABLETS BY MOUTH ALL OTHER DAYS IN EVENING OR DIRECTED nortriptyline 10 mg capsule 20 mg PO DAILY Patient Comments: TAKE TWO CAPSULES BY MOUTH AT BEDTIME metoprolol succinate 25 mg tablet extended release 24 hr 25 mg PO DAILY Patient Comments: TAKE 1 TABLET BY MOUTH ONCE DAILY escitalopram oxalate 20 mg tablet 20 mg PO DAILY Patient Comments: TAKE ONE TABLET BY MOUTH EVERY DAY IN THE MORNING atorvastatin 40 mg tablet 40 mg PO DAILY isosorbide mononitrate 30 mg tablet extended release 24 hr 30 mg PO DAILY sertraline 100 mg tablet 100 mg PO QAM clopidogrel 75 mg tablet 75 mg PO DAILY losartan 25 mg tablet 25 mg PO DAILY Follow Up/Referrals: Mark Finch MD [Primary Care Provider] - Stand Alone Forms: [employer] Info Instructions
[2025-01-05] MEDS: MECLIZINE HCL 25 MG TABLET PO (12:36)
[2025-01-05] MEDS: ONDANSETRON ODT 4 MG TAB PO (12:36)
--- OUTSIDE RECORDS SUMMARY | 2025-01-05 12:43 | XMS_ITS | Clinical Summary ---
Author Organization [facility] Address [address] [place] [address]. [place] [address] Care Team Providers Care Budget Specialist Name Role Phone 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 Gender Identity Not on file Sexual Orientation [...] BLOOD ORDERABLES Final Res ult U [facility] [address] [facility], [address] [place] [id number], [facility] [phone] * (ABNORMAL) Basic metabolic panel (02/02/2023 6:48 AM CDT) [facility] Sodium 138 136 - 145 mmol/L [...] LAB - BLOOD ORDERABLES Final Res ult [facility] [address] (1st floor, no room number) [place] [address], [facility] [phone] from Last 3 Months or Most Recently Relevant to Health Maintenance Insurance [facility] MEDICARE Advance Directives For more information, please contact: [phone] * Full Code (Latest Code Status on File) Date Activated Date Inactivated Comments 02/01/2023 10:04 PM 02/04/2023 4:03 PM All basic an d advanced life-sustaining interventions are performed as appropriate Question Answer Comments Code status determined by: Discussion with dulce nt/ legal decision maker Care Teams Budget Specialist Relationship Specialty Start Date End Date Clinic, [facility] [address] [place] [address] PCP - General 02/01/23
--- OUTSIDE RECORDS SUMMARY | 2025-01-05 12:43 | XMS_ITS | Encounter Summary ---
Author Organization [facility] Address [facility] [place] [address] Care Team Providers Care Information Systems Security Specialist Name Role Phone Doctor, None Primary Care Provider Niko Peña MD Primary Care Provider [phone] Clinic, [facility] [place] Primary Care Provider Encounter Details Date Type Department Care Team (Late st Contact Info) Description 01/20/2003 [facility] [address] [place] [address] [phone] [place] [id number] [place] [address] [phone] emergency room encounter (Primary Dx) Social History Tobacco Use Types Packs/Day Years Used Date Smoking Tobacco: Every Day Cigarettes Alcohol Use Standard Drinks/Week Comments Yes 0 (1 standard drink = 0.6 oz pur e alcohol) Sex and Gender Information Value Date Recorded Sex Assigned at Not on file 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 [id number] BROOKS DAY MD MT: Document: [id number] [place], [place] Name: BETHANIE VALVERDE EMERGENCY ROOM ENCOUNTER Page 2 of 2 LCN: NAHED DSC: 01/20/2003 [place], [place] Name: MR#: : Admit Date: BETHANIE VALVERDE [id number] 1950 01/20/2003 Doctor: BROOKS DAY MD EMERGENCY R OOM ENCOUNTER Page 1 of 2 Electronically filed by Anisha Basurto 02/01/2003 9:04 AM documented in this encounter Plan of Treatment Not on file documented as of this encounter Visit Diagnoses Diagnosis emergency room encounter- Primary documented in this encounter Care Teams Information Systems Security Specialist Relationship Specialty Start Date End Date Doctor, MD Jerilyn PCP - General 10/20/01 12/09/09 Niko Chatman MD [address] [place] [address] PCP - General Internal Medicine 12/10/09 01/31/23 [facility] Garcia [address] [place] [address] PCP - General 02/01/23 documented as of this encounter
--- OUTSIDE RECORDS SUMMARY | 2025-01-08 19:49 | XMS_ITS | Encounter Summary ---
Author Organization [facility] Address [facility] [place] [address] Care Team Providers Care Verify Rep Name Role Phone Doctor, None Primary Care Provider Niko Peña MD Primary Care Provider [phone] Clinic, [facility] [place] Primary Care Provider Encounter Details Date Type Department Care Team (Late st Contact Info) Description 01/20/2003 [facility] [id number] [place] [address] [phone] [place] [id number] [place] [address] [phone] emergency room encounter (Primary Dx) Social History Tobacco Use Types Packs/Day Years Used Date Smoking Tobacco: Every Day Cigarettes Alcohol Use Standard Drinks/Week Comments Yes 0 (1 standard drink = 0.6 oz pur e alcohol) Sex and Gender Information Value Date Recorded Sex Assigned at Not on file 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 [id number] BROOKS DAY MD MT: Document: [id number] [place], [place] Name: BETHANIE VALVERDE EMERGENCY ROOM ENCOUNTER Page 2 of 2 LCN: NAHED DSC: 01/20/2003 [place], [place] Name: MR#: : Admit Date: BETHANIE VALVERDE [id number] 1950 01/20/2003 Doctor: BROOKS DAY MD EMERGENCY R OOM ENCOUNTER Page 1 of 2 Electronically filed by Anisha Basurto 02/01/2003 9:04 AM documented in this encounter Plan of Treatment Not on file documented as of this encounter Visit Diagnoses Diagnosis emergency room encounter- Primary documented in this encounter Care Teams Verify Rep Relationship Specialty Start Date End Date Doctor, MD Jerilyn PCP - General 10/20/01 12/09/09 Niko Chatman MD [address] [place] [address] PCP - General Internal Medicine 12/10/09 01/31/23 Bella Garcia [address] [place] [address] PCP - General 02/01/23 documented as of this encounter
--- OUTSIDE RECORDS SUMMARY | 2025-01-08 19:50 | XMS_ITS | Clinical Summary ---
Author Organization [facility] Address [address] [place] [address]. 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 Gender Identity Not on file Sexual Orientation [...] BLOOD ORDERABLES Final Res ult U [facility] [place] [facility] [address] [facility], [address] [place] [id number], [facility] [phone] * (ABNORMAL) Basic metabolic panel (02/02/2023 6:48 AM CDT) [facility] Sodium 138 136 - 145 mmol/L 02/02/2023 [...] LAB - BLOOD ORDERABLES Final Res ult [facility] Acute [facility] Lab [address] (1st floor, no room number) [place] [address], [facility] [phone] from Last 3 Months or Most Recently Relevant to Health Maintenance Insurance [facility] MEDICARE Advance Directives For more information, please contact: [phone] * Full Code (Latest Code Status on File) Date Activated Date Inactivated Comments 02/01/2023 10:04 PM 02/04/2023 4:03 PM All basic an d advanced life-sustaining interventions are performed as appropriate Question Answer Comments Code status determined by: Discussion with dulce nt/ legal decision maker Care Teams Zigzag Appliquer Relationship Specialty Start Date End Date Clinic, [facility] [address] [place] [address] PCP - General 02/01/23
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
== END 2025-01-05 13:37 | disposition home or self-care (01) ==
PROVIDERS: Emergency Provider Emergency Medicine Emergency Medical Services; PCP Family Medicine
DX: H81.23 Vestibular neuronitis, bilateral (principal)
CPT/HCPCS: 70450; 99284; A9270

== ENCOUNTER 2025-08-26 10:59 | Emergency (ER) | payer MEDICARE, SELFPAY ==
[2025-08-26 11:01] VITALS: BP 146/95; PULSE 81; RESP 18; TEMP 36.8; O2SAT 97
--- NOTE | 2025-08-26 11:13 | CT_ITS ---
Patient: BETHANIE VALVERDE Facility:?[facility] Patient ID:?[id number] Site Patient ID:?[id number]. Site :?[id number] Study:?CT-Neck Angio Angio 95CC ISOVUE 370 NON ACUTE-08/26/2025 12:56:54 PM Ordering Physician:Mabel Bunch Final Report: DATE: 08/26/2025 CLINICAL HISTORY: Patient with focal neurological deficits. TECHNIQUE: Standard helical CT image acquisition through the head and neck was performed after intravenous contrast bolus enhancement. 2D and 3D MIP images for post- processing were performed and interpreted on an independent workstation and 3D images were permanently archived. COMPARISON: CT same day, CTA 07/12/2025. FINDINGS: The origins of the great vessels from the aortic arch are patent. The origin of the right vertebral artery is patent. The origin of the left vertebral artery is patent. The common carotid arteries are patent There is plaque without stenosis at the origin of the right internal carotid artery by NASCET criteria. There is a critical (greater than 90%) stenosis at the origin of the left internal carotid artery by NASCET criteria. This is caused by calcified and non- calcified plaque with a hairline residual lumen. The rest of the cervical segments of the internal carotid arteries are patent up to their intracranial segments. The intracranial segments of the internal carotid arteries are patent. The left vertebral artery is dominant. The cervical segments of the vertebral arteries are patent. The intracranial segments of the vertebral arteries are patent. There is a calcified non-occlusive embolus to the distal left M2 segment, unchanged. The anterior cerebral arteries are normal without aneurysm or proximal occlusion identified. The anterior communicating artery is well visualized and appears normal. The basilar artery is normal without aneurysm or occlusion. The posterior cerebral arteries are normal without aneurysm or proximal occlusion. The visualized lung apices are unremarkable The thyroid gland is unremarkable. The soft tissues of the neck are unremarkable. There are degenerative changes in the cervical spine. IMPRESSION: 1. No acute proximal intracranial large vessel occlusion. 2. Unchanged calcified non-occlusive embolus to the distal left M2 segment. 3. Critical (greater than 90%) stenosis at the origin of the left internal carotid artery by NASCET criteria. This is caused by calcified and non-calcified plaque with a hairline residual lumen. The degree of narrowing appears increased from the 07/2025 CTA, although this could be due to differences in technique. Please note that all CT scans at this facility use dose modulation, iterative reconstruction, and/or weight-based dosing when appropriate to reduce radiation dose to as low as reasonably achievable. Dictated by Eugenia Lanier MD @ 08/26/2025 5:01:26 PM (Electronic Signature)
--- NOTE | 2025-08-26 11:13 | CRLHL7_ITS ---
For Patients: As a result of the Century Cures Act, medical imaging exams and procedure reports are released immediately into your electronic medical record. You may view this report before your referring provider. If you have questions, please contact your health care provider. Indication: Left-sided numbness, history of TIA Technique: Volumetric multidetector CT images of the head were obtained without the administration of low osmolar intravenous contrast. Comparison: CT head without contrast January 05, 2025 Findings: There is no intra-axial or extra-axial fluid collection. There is no mass effect or midline shift. There is age-related cortical atrophy with mild sulcal widening and ex vacuo dilatation of the lateral ventricles. There are chronic small vessel disease changes in the subcortical and periventricular white matter without lost reilly-white differentiation. The orbits and their contents are grossly within normal limits. The bony calvarium is grossly intact. The paranasal sinuses are clear. The mastoid air cells are well aerated. Impression: 1. Age-related changes of the brain without acute intracranial abnormality. Please note that all CT scans at this facility use dose modulation, iterative reconstruction, and/or weight-based dosing when appropriate to reduce radiation dose to as low as reasonably achievable. Dictated by Rodrigo Seo MD @ 08/26/2025 1:06:54 PM (Electronically Signed)
--- NOTE | 2025-08-26 11:13 | CT_ITS ---
Patient: BETHANIE VALVERDE Facility:?[facility] Patient ID:?[id number] Site Patient ID:?[id number]. Site :?1950 Study:?CT-Head Angio 95CC ISOVUE 370 NON ACUTE-08/26/2025 12:56:30 PM Ordering Physician:Mabel Bunch Final Report: DATE: 08/26/2025 CLINICAL HISTORY: Patient with focal neurological deficits. TECHNIQUE: Standard helical CT image acquisition through the head and neck was performed after intravenous contrast bolus enhancement. 2D and 3D MIP images for post- processing were performed and interpreted on an independent workstation and 3D images were permanently archived. COMPARISON: CT same day, CTA 07/12/2025. FINDINGS: The origins of the great vessels from the aortic arch are patent. The origin of the right vertebral artery is patent. The origin of the left vertebral artery is patent. The common carotid arteries are patent There is plaque without stenosis at the origin of the right internal carotid artery by NASCET criteria. There is a critical (greater than 90%) stenosis at the origin of the left internal carotid artery by NASCET criteria. This is caused by calcified and non- calcified plaque with a hairline residual lumen. The rest of the cervical segments of the internal carotid arteries are patent up to their intracranial segments. The intracranial segments of the internal carotid arteries are patent. The left vertebral artery is dominant. The cervical segments of the vertebral arteries are patent. The intracranial segments of the vertebral arteries are patent. There is a calcified non-occlusive embolus to the distal left M2 segment, unchanged. The anterior cerebral arteries are normal without aneurysm or proximal occlusion identified. The anterior communicating artery is well visualized and appears normal. The basilar artery is normal without aneurysm or occlusion. The posterior cerebral arteries are normal without aneurysm or proximal occlusion. The visualized lung apices are unremarkable The thyroid gland is unremarkable. The soft tissues of the neck are unremarkable. There are degenerative changes in the cervical spine. IMPRESSION: 1. No acute proximal intracranial large vessel occlusion. 2. Unchanged calcified non-occlusive embolus to the distal left M2 segment. 3. Critical (greater than 90%) stenosis at the origin of the left internal carotid artery by NASCET criteria. This is caused by calcified and non-calcified plaque with a hairline residual lumen. The degree of narrowing appears increased from the 07/2025 CTA, although this could be due to differences in technique. Please note that all CT scans at this facility use dose modulation, iterative reconstruction, and/or weight-based dosing when appropriate to reduce radiation dose to as low as reasonably achievable. Dictated by Eugenia Lanier MD @ 08/26/2025 5:02:28 PM (Electronic Signature)
--- OUTSIDE RECORDS SUMMARY | 2025-08-26 11:30 | XMS_ITS | Clinical Summary ---
Author Organization [facility] [place] Address [address] [place] [address]. [place] [address] Care Team Providers Care Vegetable Vendor Name [facility] Primary [facility] Provider Allergies No known active allergies Medications MedicationSigDispense QuantityRefillsLast FilledStart DateEnd DateStatus atorvastatin (LIPITOR) 40 MG tablet Take 40 mg by mouth every bwujdnp7911/12/2022ctive clopidogrel (PLAVIX) 75 MG tablet Take 75 mg by mouth every kvmsrwm4612/30/2022ctive escitalopram (LEXAPRO) 20 MG tablet Take 20 mg by mouth every bohencs0601/21/2023ctive metoprolol succinate ER (TOPROL XL) 25 MG 24 hr tablet Take 25 mg by mouth every olukima9301/10/2023ctive nortriptyline (PAMELOR) 10 MG capsule Take 30 mg by mouth At Bbulyxu8401/21/2023ctive warfarin ANTICOAGULANT (COUMADIN) 5 MG tablet Take 5 mg by mouth every qganmco5111/11/2022ctive acetaminophen (TYLENOL) 500 MG tablet Take 500-1,000 mg by mouth every 6 hours as needed for mild painActive losartan (COZAAR) 25 MG tablet Indications:NSTEMI (non-ST elevated myocardial infarction) (H),Hypertension, unspecified typeTake 1 tablet (25 mg) by mouth daily for 90 days 90 tablet 02/05/2023ctive Active Problems ProblemNoted DateDiagnosed DateElevated nlplyecs76/30/2023hest pain, unspecified type02/01/2023ARDIOVASCULAR SCREENING; LDL GOAL LESS THAN 130 07/05/2010HTN (hypertension)07/21/2009Inguinal nciyfo5107/21/2009 Social History Tobacco UseTypesPacks/DayYears UsedDateSmoking Tobacco: Every DayCigarettes Alcohol UseStandard Drinks/WeekCommentsYes0 (1 standard drink = 0.6 oz pure alcohol)Adolescent EducationAnswerDate RecordedGetting School Help NeededNot on file06/07/2023Sex and Gender InformationValueDate RecordedSex Assigned at Not on fileLegal WevIugl61/04/2012 2:58 AM CSTGender IdentityNot on fileSexual OrientationNot on file Last Filed Vital Signs Vital SignReadingTime TakenCommentsBlood Iyxlizzc298/9402/04/2023 8:03 AM CDT Snfrp043002/04/2023 8:03 AM DQFBnzxfhrktpn05.5 ??C (97.7 ??F)02/04/2023 8:03 AM CDTRespiratory Rlrz616802/04/2023 8:03 AM CDTOxygen Pujdaqibtn28%02/04/2023 8:03 AM CDTInhaled Oxygen Concentration--Ngasjx00.1 kg (200 lb 13.4 oz)02/01/2023 9:31 PM JFEMrtmpv687.9 cm (6')02/01/2023 9:52 PM CDTBody Mass Index27.24 02/01/2023 9:31 PM CDT Plan of Treatment Health MaintenanceDue DateLast DoneCommentsADVANCE CARE PNQWECVU07/16/1953NNUAL REVIEW OF HM MIATCM583CT URMVXHLEWSSA69/16/0665FIA77 1952FLEX SIG 1952sDNA (Cologuard)1950 2518RRJXWKITKQM76/16/1963COLORECTAL CANCER QIDLXQHVZ61/16/1963HEPATITIS C FMUDZFKRT68/16/1971DTAP/TDAP/TD VACCINE (1 - Tdap)1977LUNG CANCER MHPMYFMZU97/16/2003PNEUMOCOCCAL VACCINE 50+ YEARS (1 of 1 - PCV)2002RSV VACCINE (1 - Risk 50-74 years 1-dose series)2002 ZOSTER VACCINE (1 of 2)2002FALL RISK LORIZHAIAC65/16/2018MEDICARE ANNUAL WELLNESS VISIT/6675QRU31/, 02/01/2023LIPID HQ-2 (once per calendar year)5COVID-19 VACCINE ( season)/08/2022, 04/26/2022, 2021, Additional history existsINFLUENZA VACCINE (#1)05/06/2025DIABETES JSDTGIYCQ62/31/2026 02/02/2023, 02/02/2023, 02/01/2023HPV VACCINE (No Doses Required)Completed MENINGITIS VACCINEAged OutNo longer eligible based on patient's age to complete this topic Procedures Procedure NamePriorityDate/TimeAssociated DiagnosisCommentsLIPID REFLEX TO DIRECT LDL VRBGZPysifik65/31/2023 6:48 AM CDT BASIC METABOLIC XBRKXNvezchv55/31/2023 6:48 AM CDT from Last 3 Months or Most Recently Relevant to Health Maintenance Results * (ABNORMAL) Lipid panel reflex to direct LDL (02/02/2023 6:48 AM CDT)Component ValueRef RangeTest MethodAnalysis TimePerformed AtPathologist Signature Eepfylfypkp367(H)<200 mg/dL02/02/2023 11:19 AM CDTUU LABORATORYTriglycerides 105<150 mg/dL02/02/2023 11:19 AM CDTUU LABORATORYDirect Measure HDL68>=40 mg/dL02/02/2023 11:19 AM CDTUU LABORATORYLDL Cholesterol Uyzxwnbomr848(H)<=100 mg/dL02/02/2023 11:19 AM CDTUU LABORATORYNon HDL Pidrogspwua903(H)<130 mg/dL 02/02/2023 11:19 AM CDTUU LABORATORYSpecimen (Source)Anatomical Location / LateralityCollection Method / VolumeCollection TimeReceived TimeBloodSTRUCTURE OF LEFT UPPER LIMB / UnknownVenipuncture / Rmjglwj7002/02/2023 6:48 AM CDT 02/02/2023 7:02 AM CDT Narrative [facility] - 02/02/2023 11:19 AM CDT Cholesterol Desirable: <200 mg/dL Triglycerides Normal: ??Less than 150 mg/dL Borderline High: ??150-199 mg/dL High: ??200-499 mg/dL Very High: ??Greater than or equal to 500 mg/dL Direct Measure HDL Female: ??Greater than or equal to 50 mg/dL Male: ??Greater than or equal to 40 mg/dL LDL Cholesterol Desirable: <100mg/dL Above Desirable: ??100-129 mg/dL Borderline High: ??130-159 mg/dL High: ??160-189 mg/dL Very High: >= 190 mg/dL Non HDL Cholesterol Desirable: ??130 mg/dL Above Desirable: ??130-159 mg/dL Borderline High: ??160-189 mg/dL High: ??190-219 mg/dL Very High: ??Greater than or equal to 220 mg/dL Authorizing ProviderResult TypeResult StatusPavan Esquivel MDLAB - BLOOD ORDERABLES Final ResultPerforming OrganizationAddressCity/State/ZIP CodePhone Number [facility] [place] [facility] [address] [facility], [address] [address] [phone] * (ABNORMAL) Basic metabolic panel (02/02/2023 6:48 AM CDT)ComponentValueRef RangeTest MethodAnalysis TimePerformed AtPathologist CsyewqakjEnovds482606 - 145 mmol/L02/02/2023 7:50 AM CDTRH LABORATORYPotassium4.23.4 - 5.3 mmol/L 02/02/2023 7:50 AM CDTRH XXBBQETNHOAnyimemd22732 - 107 mmol/L02/02/2023 7:50 AM CDTRH LABORATORYCarbon Dioxide (CO2)2322 - 29 mmol/L02/02/2023 7:50 AM CDT RH LABORATORYAnion Ufv830 - 15 mmol/L02/02/2023 7:50 AM CDTRH LABORATORYUrea Zlrwngoc32.1(H)8.0 - 23.0 mg/dL02/02/2023 7:50 AM CDTRH LABORATORYCreatinine 0.930.67 - 1.17 mg/dL02/02/2023 7:50 AM CDTRH LABORATORYCalcium9.28.8 - 10.2 mg/dL02/02/2023 7:50 AM CDTRH TAKYDSLRDBWldfxxa997(H)70 - 99 mg/dL02/02/2023 7:50 AM CDTRH LABORATORYGFR Dopqljdy58>60 mL/min/1.85t23502/02/2023 7:50 AM CDT RH LABORATORYComment:eGFR calculated using 2020 CKD-EPI equation.Specimen (Source)Anatomical Location / LateralityCollection Method / VolumeCollection TimeReceived TimeBloodSTRUCTURE OF LEFT UPPER LIMB / UnknownVenipuncture / Hbghpoj2902/02/2023 6:48 AM CDT02/02/2023 7:03 AM CDT Narrative Authorizing ProviderResult TypeResult StatusVivedustin Esquivel MDLAB - BLOOD ORDERABLES Final ResultPerforming OrganizationAddressCity/State/ZIP CodePhone Number LABORATORY [facility] [address] [facility] (1st floor, no room number) [place] [address], [facility] [phone] from Last 3 Months or Most Recently Relevant to Health Maintenance Insurance Advance Directives For more information, please contact: [phone] * Full Code (Latest Code Status on File) Date ActivatedDate InactivatedComments02/01/2023 10:04 PM02/04/2023 4:03 PMAll basic and advanced life-sustaining interventions are performed as appropriate QuestionAnswerCommentsCode status determined by:* Discussion with patient/ legal decision maker Care Teams Team MemberRelationshipSpecialtyStart DateEnd Date [facility], [place] [address] [address] [address] [facility] - Baksgpo02/01/23
--- OUTSIDE RECORDS SUMMARY | 2025-08-26 11:30 | XMS_ITS | Clinical Summary ---
Author Organization [employer] [facility] [employer] [facility] Address [address] [place] [id number] Care Team Providers Care Plumbing Mechanic Name Role Phone Christopher Huggins MD Primary Care Provider [phone] Elizabeth Galvan MD Unavailable [phone] Allergies No known active allergies Medications MedicationSigDispense QuantityRefillsLast FilledStart DateEnd DateStatus multivit with min-folic acid (Adult Multivitamin Gummies) 120 mcg chew Chew by mouth. 3 chewables dailyActive meclizine 25 mg tablet Indications:VertigoTake 1 Tablet (25 mg) by mouth 3 times daily if needed for Motion Sickness or Vertigo. 30 Tablet 5Active isosorbide mononitrate (IMDUR) 30 mg extended release tablet 24 Hour Indications:CAD, multiple vesselTake 1 Tablet (30 mg) by mouth once daily. 90 Tablet 5Active losartan (COZAAR) 25 mg tablet Indications:CAD in pamunkey arteryTake 1 Tablet (25 mg) by mouth once daily. 90 Tablet 5Active metoprolol succinate (TOPROL XL) 25 mg Sustained-Release tablet Indications:Ischemic stroke (HC),Other hyperlipidemia,Mixed hyperlipidemiaTake 1 Tablet (25 mg) by mouth once daily. 90 Tablet 5Active atorvastatin (LIPITOR) 40 mg tablet Indications:Hyperlipidemia, unspecified hyperlipidemia typeTAKE ONE TABLET BY MOUTH EVERY DAY 90 Tablet 5Active sertraline (ZOLOFT) 100 mg tablet Indications:Obsessive-compulsive disorder, unspecified type,AnxietyTake 1 Tablet (100 mg) by mouth once daily in the morning. 90 Tablet 5Active clopidogreL (PLAVIX) 75 mg tablet Indications:Ischemic stroke (HC)TAKE ONE TABLET BY MOUTH EVERY DAY 90 Tablet 5Active nitroglycerin 0.4 mg sublingual tablet Indications:CAD, multiple vesselPlace 1 Tablet (0.4 mg) under the tongue every 5 minutes if needed for Chest Pain. Take one tablet every 5 minutes. If no relief after 3 tablets call 911 25 Tablet 5Active zytwusitjypee-vkaxlgod-zgsudqskgx (Fioricet) 300-40-50 mg Indications:Headache syndromeTake 1 Capsule by mouth every 4 hours if needed for Headache. 10 Capsule 5Active gabapentin (NEURONTIN) 300 mg capsule Indications:Neuropathic painTake 1-2 Capsules (300-600 mg) by mouth three times daily. 90 Capsule 5Active nortriptyline (PAMELOR) 10 mg capsule Indications:Chronic insomniaTAKE 2 TO 3 CAPSULES BY MOUTH AT BEDTIME 270 Capsule 5Active erythromycin ophthalmic ointment 0.5% Indications:Herpes zoster ophthalmicus, left eyeApply 1 Strip to left eye three times daily for 14 days. 0.735 g /5Active warfarin (COUMADIN) 5 mg tablet Indications:Atrial fibrillation, unspecified type (HC),Ischemic stroke (HC), Anticoagulation monitoring, INR range 2-3Take by mouth 08/23: 5 mg; Otherwise 10 mg every Mon, Fri; 5 mg all other days in the evening OR dpjgaqfzfc19/18/2025 Active nortriptyline (PAMELOR) 10 mg capsule Indications:Chronic insomniaTAKE 2-3 CAPSULES BY MOUTH AT BEDTIME 270 Capsule Discontinued warfarin (COUMADIN) 5 mg tablet Indications:Atrial fibrillation, unspecified type (HC),Ischemic stroke (HC), Anticoagulation monitoring, INR range 2-3Take by mouth 07/13: Hold; 07/14: Hold; 07/15: Hold; 07/16: Hold; 07/17: Hold; Otherwise 10 mg every Mon, Fri; 5 mg all other days in the evening OR as iwbsvlll85Discontinued(Other - add note to specify (E-cancel not sent)) predniSONE (DELTASONE) 20 mg tablet Indications:Allergic reaction, initial encounterTake 2 Tablets (40 mg) by mouth once daily with a meal for 5 days. 10 Tablet Expired cephalexin 500 mg capsule Indications:skin and skin structure infectionTake 1 Capsule (500 mg) by mouth three times daily for 7 days. 21 Capsule /Expired valACYclovir (VALTREX) 1 gram tablet Indications:Shingles of eyelidTake 1 Tablet (1 g) by mouth three times daily for 7 days. 21 Tablet /Expired prednisoLONE acetate 1% ophthalmic (ECONOPRED PLUS, PRED FORTE, OMNIPRED) suspension Indications:Herpes zoster ophthalmicus, left eye,Iritis due to infectionPlace 1 Drop into both eyes every 3 hours for 14 days. 11.2 mL /06/2025Expired cyclopentolate (CYCLOGYL) 1 % ophthalmic solution Indications:Iritis due to infectionPlace 1 Drop into left eye three times daily for 7 doses. 0.7 mL /Expired Active Problems ProblemNoted DateDiagnosed DateStable hwixfi1407/18/2025KD (chronic kidney disease), stage II05/14/2024History of transient ischemic attack (TIA)05/11/2024 Glenohumeral arthritis, right03/06/2024therosclerosis of pamunkey coronary artery with angina pectoris, unspecified whether pamunkey or transplanted heart10/19/2023 CAD, multiple ejoqio7710/01/2022Nuclear senile cataract of both eyes12/16/2021 Urpxkddfcw55/13/2022Hyperopia of left eye12/16/2021Exotropia of left eye 12/16/2021Vision loss, left eye12/16/2021ptic atrophy of left eye12/16/2021 Mixed obsessional thoughts and acts12/16/20217567Iqhdghd64/13/2022trial fibrillation, unspecified type2021nticoagulation monitoring, INR range 2-302Intermittent atrial yqvpmaiwyjjb67/30/2022Ischemic ttfyzg3712/19/2020 Dzkpuyif29/03/2019 Overview (01/05/2019): 1991. Treated with chemo Mixed iofopncmzelvap82/31/2019Depression, major, in crxyextpb80/15/2019 Epistaxis, orofkmibc81/27/2016Non-recurrent bilateral inguinal hernia without obstruction or dokwaaan89/20/2015Mass of lip03/24/2015HTN (hypertension) 07/21/2009Inguinal yzxxry6507/21/2009 Encounters DateTypeDepartmentCare XckcTrnszwzokdr44/22/2025Nurse Triage [facility] [address] [place] [address] Christopher Huggins MD Neurologic Huyyiyt1308/22/2025Telephone [facility] [address] [place] [address] Christopher Huggins MD Anticoagulation (Procedure 09/19/2025)08/21/2025 11:40 AM CSTOffice Visit [facility] [address] [place] [address] Mayur Caldwell OD Follow Up (3 week Herpes zoster ophthalmicus, left eye re-ck)08/21/2025 11:00 AM CSTNurse/Clinic Staff Only [facility] [address] [place] [address] Blood Onzrtzuu51/17/2025 10:00 AM CSTOrders Only [facility] [address] [place] [address] Lab, Farm <No scans attached>08/21/2025Results Follow-Up [facility] [address] [place] [address] Christopher Huggins MD 08/21/2025nticoagulation (warfarin) [facility] [address] [place] [address] Nurse, Kush Anticoag Siscmucrbxsaksb01/17/2025Telephone [place] [address] [place] [address] Christopher Huggins MD Follow Up08/21/20252016Etkako78/04/2025Refill [facility] [address] [place] [address] Christopher Huggins MD Refill Request (Nortriptyline)08/07/2025Telephone [facility] [address] [place] [address] Mayur Caldwell, OD Failed Cdgmucxikoi68/01/2025Telephone [facility] [address] [place] [address] Christopher Huggins MD Anticoagulation (unable to contact)07/31/2025 1:40 PM CSTOffice Visit [facility] [address] [place] [address] Mayur Caldwell, OD Eye Problem (Shingles concerns. )07/31/2025 11:15 AM CSTOrders Only [facility] [address] [place] [address] Lab, Farm Lab07/31/2025nticoagulation (warfarin) [facility] [address] [place] [address] Nurse, Griseldag Anticoag Porguatdtuappny43/26/2025Telephone [facility] [address] [place] [address] Christopher Huggins MD Etmloxie89/26/1937Bgndar51/21/2025Telephone [facility] [address] [place] [address] Christopher Huggins MD Anticoagulation (BPA- Keflex)07/26/2025Nurse Triage [facility] [address] [place] [address] Christopher Huggins MD Eye Pain/yavyzzq7907/24/2025Telephone [facility] [address] [place] [address] Kris Philip MBBS Procedure Wrcqrpv2007/23/2025 10:50 AM CSTOffice Visit [facility] [address] [place] [address] Christopher Huggins MD Rash (On forehead and around eye); Headache (3-4 days, nothing OTC is working) 07/23/2025Telephone [facility] [address] [place] [address] Christopher Huggins MD Anticoagulation (OPA Prednisone and Warfarin )07/23/20251108Rhqhdz43/17/2025Nurse Triage [facility] [address] [place] [address] Christopher Huggins MD Shortness Of Zcttnv8407/22/2025Telephone [facility] [address] [place] [address] Christopher Huggins MD Questions (Angiogram )07/18/2025 11:29 AM TERRITORY SALES MANAGER MEDICAL - 07/18/2025 5:20 PM CSTHospital Encounter [facility] [address] [place] [address] Dalton Noel MBBS Discharge Disposition: Home Self Care07/18/20259106Kgqeec95/11/2025Telephone [facility] [address] [place] [address] Kris Philip MBBS Surgery pgcpea4407/12/2025 2:33 PM TERRITORY SALES MANAGER MEDICAL - 07/12/2025 11:59 PM CSTHospital Encounter [facility] [address] [place] [address] Kris Philip MBBS Yfxkiiernhuj72/07/2025 1:53 PM TERRITORY SALES MANAGER MEDICAL - 07/12/2025 2:32 PM CSTHospital Encounter [facility] [address] [place] [address] Kris Philip MBBS Carotid stenosis, bilateral [I65.23]07/12/20258973Jontzw19/07/2025Anticoagulation (warfarin) [facility] [address] [place] [address] Nurse, Kush Anticoag Anticoagulation (Chart update)07/11/2025Telephone [facility] [address] [place] [address] Elizabeth Galvan MD Pre Htowoygdl23/05/2025 11:00 AM CSTOrders Only [facility] [address] [place] [address] Lab, Farm Lab07/10/2025Telephone [facility] [address] [place] [address] Christopher Huggins MD Anticoagulation (Upcoming procedure 07/18/25)5Anticoagulation (warfarin) [facility] [address] [place] [address] Christopher Huggins MD Cjfjuckjykdvatm58/04/2025 1:30 PM CSTOffice Visit [facility] [address] [place] [address] Dalton Noel MBBS Consult (Initial Watchman Consult. ); Concerns (Patient has been feeling more Chest Pain lately. Patient has been feeling some Shortness of Breath. Patient has been having pain in his calves. Patienthas had some plaque in his carotids. Patient denies increased Dizziness. Patient denies Swelling and Fatigue. Patient has been noticing the isosorbide mononitrate hasn't been working as well. Patienthas been exerting himself a lot. )07/09/20254151Ogxubc19/27/2025Refill [facility] [address] [place] [address] Elizabeth Galvan MD Refill Request (Nitroglycerin)06/26/2025 3:45 PM CDTOffice Visit [facility] [address] [place] [address] Kris Philip MBBS Follow Up (carotid stenosis, bilateral 1 year follow up )06/26/2025 1:16 PM CDT - 06/26/2025 11:59 PM CDTHospital Encounter [facility] [address] [place] [address] Kris Philip MBBS Carotid stenosis, ddkkjfkok71/22/0226Lwemed62/21/2025Refill [facility] [address] [place] [address] Elizabeth Galvan MD Refill Request (Clopidogrel)06/13/2025 1:54 PM CDT - 06/13/2025 11:59 PM CDT Hospital Encounter [facility] [address] [place] [address] Dalton Noel MBBS Ischemic stroke (HC); PAF (paroxysmal atrial fibrillation) (HC)06/13/20257977Rifanz35/06/2025 9:50 AM CDT Ancillary Procedure [facility] [address] [place] [address] 06/10/2025 9:45 AM CDTProcedure Only [facility] [address] [place] [address] Krissy Pablo MD Recheck (EP - right shoulder pain)06/10/20257132Gzeluu85/25/2025Refill [facility] [address] [place] [address] Christopher Huggins MD Refill Request (Warfarin)05/27/2025Telephone [facility] [address] [facility] [address] [place] [address] Dalton Noel MBBS Appointmentfrom Last 3 Months Immunizations ImmunizationAdministration DatesNext DueCOVID-19 VACCINE SPIKEVAX (MODERNA 50MCG/0.5ML) 12YO+ PFS3COVID-19 vaccine (Moderna 100mcg/0.5mL) PF, MDV 05/06/2021,1COVID-19 vaccine (Moderna 50mcg/0.5mL) 12YO+ BIVALENT PF, MDV12COVID-19 vaccine (Moderna Booster 50mcg/0.25mL) PF, MDV04/26/2022, 2021 Family History Medical HistoryRelationNameCommentsAlcoholismBrotherAlcoholismFatherHeart DiseaseMaternal GrandmotherThyroid DiseaseMaternal GrandmotherHeart Disease MotherHyperlipidemiaMotherHypertensionMotherCancerPaternal GrandfatherAlcoholism SisterRelationNameStatusCommentsBrotherFatherDeceasedMaternal GrandmotherMother AlivePaternal GrandfatherSister Social History Tobacco UseTypesPacks/DayYears UsedDateSmoking Tobacco: FormerCigarettes0.541 1970 - 2011Passive Smoke Exposure: PastSmokeless Tobacco: Never Tobacco Cessation:Counseling Given: Not Answered Comments:off and on Alcohol UseStandard Drinks/RpinLrovsxrgMvg34 (1 standard drink = 0.6 oz pure alcohol)1-3 beers nightlyPHQ-2AnswerDate RecordedPHQ-2 TOTAL GWQIU48001/02/2025 Social ConnectionsAnswerDate RecordedDo you often feel lonely or isolated from those around you?lcohol UseAnswerDate RecordedHow often do you have a drink containing alcohol?How many drinks containing alcohol do you have on a typical day when you are drinking?How often do you have five or more drinks on one occasion?Financial Resource StrainAnswer Date RecordedDifficulty of Paying Living Dkswownj395/18/2025Difficulty of Paying Living ExpensesNot on file07/23/2025Food InsecurityAnswerDate RecordedDo you worry your food will run out before you are able to buy more? Transportation NeedsAnswerDate RecordedDoes lack of transportation keep you from medical appointments?Does lack of transportation keep you from work, meetings or getting things that you need?Housing StabilityAnswerDate RecordedWhat is your housing situation today?Interpersonal Safety AnswerDate RecordedAre you being hit, kicked, pushed or yelled at (see row info)?Unable to assess, family/SO in room.07/18/2025Interpersonal Safety Abuse 12 - 18Not on file07/18/2025Interpersonal Safety Ambulatory VulnerabilityNot on file07/18/2025UtilitiesAnswerDate RecordedDo you have trouble paying for utilities (for example, heat, electricity, water, phone)?Sex and Gender InformationValueDate RecordedSex Assigned at BirthNot on fileLegal Sex Male09/18/2012 6:38 AM CSTGender IdentityNot on fileSexual OrientationNot on file Last Filed Vital Signs Vital SignReadingTime TakenCommentsBlood Tmzcbhto930/7808/21/2025 11:20 AM TERRITORY SALES MANAGER MEDICAL Lgckz862408/21/2025 11:20 AM LNFPepfxofhhfs93.3 ??C (99.1 ??F)07/18/2025 11:51 AM CSTRespiratory Lgbm694109/17/2024 3:30 PM CSTOxygen Zkalrzbstx14%07/18/2025 3:30 PM CSTInhaled Oxygen Concentration--Mcthxm95.2 kg (201 lb)07/23/2025 10:49 AM UZXViipuu285.3 cm (5' 11)07/18/2025 11:51 AM CSTBody Mass Index28.03109/17/2024 11:51 AM TERRITORY SALES MANAGER MEDICAL Plan of Treatment DateTypeDepartmentCare Team (Latest Contact Info)Giqnpohxrdx08/24/2025 10:00 AM CSTOrders Only [facility] [address] [place] [address] Lab, Farm 09/09/2025 11:15 AM CSTOffice Visit [facility] [address] [place] [address] [place] [address] [place] [address] 09/19/2025 1:45 PM CSTAppointment [facility] [address] [place] [address] Kris Philip MBBS [address] [place] [address] 10/04/2025 1:45 PM CSTAppointment [facility] [address] [place] [address] 10/04/2025 2:30 PM CSTAppointment [facility] [address] [place] [address] 10/04/2025 3:45 PM CSTOffice Visit [facility] [address] [place] [address] Kris Philip MBBS [address] [place] [address] Health MaintenanceDue DateLast DoneCommentsTetanus pkoojdf5510/21/1963Hepatitis C screening for age 18-7910/21/1970Pneumococcal series for age 50+ (1 of 2 - PCV) 1971Zoster (shingles) series for age 50+ (1 of 2)1971Colonoscopy through age RSV vaccine for adults or (1 - Risk 50-74 years 1-dose series)2002Low Dose CT (for lung CA) age 50-80004/18/2025 04/18/2024OVID-19 vaccine series ( season), 08/16/2022, 04/26/2022, Additional history existsInfluenza Vaccine (#1) 05/06/2025Medicare Wellness for age 65+6010/01/2024, 08/19/2023, 12/16/2021, Additional history existsDepression screening for age 12+01/02/2026 01/02/2025, 01/02/2025, 01/02/2025, Additional history existsBMI (ht and wt on same day) for age 18+, 03/29/2025, 10/01/2024, Additional history existsLipids for age 45-75, 10/08/2022, 01/29/2022, Additional history existsAAA screening age 65-07Mijdqhktc33/12/2023Hepatitis B series for 19+Aged OutNo longer eligible based on patient's age to complete this topic Procedures Procedure NamePriorityDate/TimeAssociated DiagnosisCommentsPROTIME-INRRoutine 08/21/2025 12:23 PM TERRITORY SALES MANAGER MEDICAL Atrial fibrillation, unspecified type (HC) Ischemic stroke (HC) Anticoagulation monitoring, INR range 2-3 PROTIME-APGBwqwqxy86/26/2025 11:15 AM TERRITORY SALES MANAGER MEDICAL Atrial fibrillation, unspecified type (HC) Ischemic stroke (HC) Anticoagulation monitoring, INR range 2-3 SCAN-CARDIAC STRIP07/18/2025 5:01 PM CSTSCAN-CARDIAC STRIP07/18/2025 2:13 PM TERRITORY SALES MANAGER MEDICAL SCAN-CARDIAC STRIP07/18/2025 2:09 PM CSTCVL CORONARY ANGIOGRAM POSS PCIRoutine 07/18/2025 1:36 PM TERRITORY SALES MANAGER MEDICAL PROTIME-OXFEYRU8207/18/2025 12:33 PM TERRITORY SALES MANAGER MEDICAL EKG 12 TNGZIEZR62/13/2025 12:01 PM TERRITORY SALES MANAGER MEDICAL LIPID TIWANESKI87/13/2025 11:53 AM TERRITORY SALES MANAGER MEDICAL BASIC METABOLIC ZAHCCXLRJ54/13/2025 11:53 AM TERRITORY SALES MANAGER MEDICAL CBC W PLT NO YTSRYCAT43/13/2025 11:53 AM TERRITORY SALES MANAGER MEDICAL US ANKLE BRACHIAL INDEX JHCGGZAKBIshherw45/07/2025 4:11 PM TERRITORY SALES MANAGER MEDICAL Claudication US ARTERIAL LOWER EXTREMITY HUITVEXSFMfinhzk22/07/2025 4:10 PM TERRITORY SALES MANAGER MEDICAL Claudication CREATININE,FRVYEFyyloqw70/07/2025 2:09 PM TERRITORY SALES MANAGER MEDICAL CT ANGIO HEAD AND NECK MCKOBRVSTMV35/07/2025 2:07 PM TERRITORY SALES MANAGER MEDICAL Carotid stenosis, bilateral [I65.23] INR,YSXJCcmlsxt04/05/2025 11:11 AM TERRITORY SALES MANAGER MEDICAL Atrial fibrillation, unspecified type (HC) Ischemic stroke (HC) Anticoagulation monitoring, INR range 2-3 EKG 12 IACXSxxrmjc90/04/2025 2:53 PM TERRITORY SALES MANAGER MEDICAL PAF (paroxysmal atrial fibrillation) (HC) US CAROTID DUPLEX JBIRUZMGGIohjlcs31/22/2025 2:39 PM CDT Carotid stenosis, bilateral CT CARDIAC MORPHOLOGY W CV DUAL SGRKUpynzeg12/09/2025 2:16 PM CDT Ischemic stroke (HC) PAF (paroxysmal atrial fibrillation) (HC) CT CARDIAC MORPHOLOGY W RAD DUAL WUDAUjgktmz80/09/2025 2:16 PM CDT Ischemic stroke (HC) PAF (paroxysmal atrial fibrillation) (HC) CREATININE,TZCJYXwjfupg46/09/2025 2:10 PM CDT XR SHOULDER 4 VIEWS RAGJYNktpars63/02/2025 9:48 AM CDT Primary osteoarthritis of right shoulder CT CHEST VUHwlwoys04/14/2024 12:00 AM CDT Chronic shortness of breath Lymphoma, unspecified body region, unspecified lymphoma type (HC) History of cigarette smoking US ABD AORTA SBLXJDYBNPtkqtvy09/12/2023 9:27 AM CDT Screening for AAA (abdominal aortic aneurysm) from Last 3 Months or Most Recently Relevant to Health Maintenance Results * (ABNORMAL) PROTIME-INR [95610.0] - Standing Order (08/21/2025 12:23 PM TERRITORY SALES MANAGER MEDICAL) Only the most recent of3 resultswithin the time period is included. ComponentValueRef RangeTest MethodAnalysis TimePerformed AtPathologist Signature INR3.9(H)<1. 3:12 PM [facility]STSOU[facility] GBPTTDX45.2(H)10.6 - 12.4 sec08/21/2025 3:12 PM CSTSOUTH [facility] LABORATORYSpecimen (Source)Anatomical Location / LateralityCollection Method / VolumeCollection TimeReceived TimeBloodBLOOD SPECIMEN / UnknownQuest Collect / Uozryur8208/21/2025 12:23 PM CST08/21/2025 12:23 PM TERRITORY SALES MANAGER MEDICAL Narrative [facility] - 08/21/2025 3:12 PM TERRITORY SALES MANAGER MEDICAL Therapeutic Range 2.0-3.0 for most anticoagulated patients 2.5-3.5 or 4.0 for high risk patients The INR is only used for patients on stable oral anticoagulant therapy. It makes no significant contribution to the diagnosis or treatment of patients whose Protime is prolonged for other reasons. INR results are increased when heparin levels exceed 1.0 U/mL, which corresponds to an aPTT >125seconds if the patient is on UFH. Authorizing ProviderResult TypeResult StatusChristopher Huggins MDHEMATOLOGYFinal ResultPerforming OrganizationAddressCity/State/ZIP CodePhone Number [facility] [address] [place] [address], * SCAN-CARDIAC STRIP (07/18/2025 5:01 PM TERRITORY SALES MANAGER MEDICAL) Narrative Authorizing ProviderResult TypeResult StatusScannerOTHERFinal Result * SCAN-CARDIAC STRIP (07/18/2025 2:13 PM TERRITORY SALES MANAGER MEDICAL) Narrative Authorizing ProviderResult TypeResult StatusScannerOTHERFinal Result * SCAN-CARDIAC STRIP (07/18/2025 2:09 PM TERRITORY SALES MANAGER MEDICAL) Narrative Authorizing ProviderResult TypeResult StatusScannerOTHERFinal Result * CVL CORONARY ANGIOGRAM POSS PCI (07/18/2025 1:36 PM TERRITORY SALES MANAGER MEDICAL)Anatomical Region LateralityModalityX-Ray AngiographySpecimen (Source)Anatomical Location / LateralityCollection Method / VolumeCollection TimeReceived Time07/18/2025 1:36 PM TERRITORY SALES MANAGER MEDICAL Narrative Transcriptions Dalton Noel MBBS - 07/18/2025 5:10 PM CST [facility] Cardiac Catheterization Report Name: RAMY RHODES Event Date: 07/18/2025 13:36 [employer] ID #: [id number] BRYANT #: [id number] Diagnostic Physician: DALTON NOEL [facility] Primary Installation Tech: Dr. Elizabeth Galvan Referring Physician: Primary Care Physician: CHRISTOPHER HUGGINS Date: 1950 Gender: Male Age: 74 Summary/Conclusions PRESENTATION / INDICATIONS 1. Stable angina CCS II-III 2. History of CAD: October 2022-intravascular lithotripsy with 4.0 mmshockwave balloon in left main bifurcation with LAD and circumflex, DKcrush stenting with 4.0 x 28 mm Synergy LA from distal left main to midcircumflex and 3.5 x 48 mm Synergy LA ostial left main to mid LAD VASCULAR ACCESS * Using ultrasound guidance and a percutaneous technique, the right radialartery was accessed. Ultrasound was used to confirm vessel patency,localizing needle into the lumen of the vessel. An image was saved for themedical record. DIAGNOSTIC - CORONARY ? The left main artery is large in size. ? The left main artery was normal in appearance and free of obstructivedisease. ? The previously deployed stent from the ostial left main to mid LAD iswidely patent ? The LAD is large in size. ? The previously deployed stent extending from the left main to mid LADartery is widely patent without any ISR. Normal distal LAD ? The Circumflex is large in size. ? The previously deployed stent from distal left main to proximalcircumflex artery is widely patent ? The RCA is large in size. ? Chronic total occlusion (with bridging collaterals) of the mid RCA ? Epicardial, tortuous collateral from apical LAD to the RV marginalbranch with flow into the distal LAD is seen. ? Epicardial collaterals from circumflex to right LONNIE ? Bridging collaterals of mid RCA with MISA I antegrade flow HEMODYNAMICS * The LVEDP is within normal limits Discussion: Mr. Rhodes has angina pectoris. However his stents in the leftmain, LAD and circumflex are wide open without any ISR and there is noother de-stephanie lesion in the left circulation. 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 Thereis certainly no urgency for intervention at this time. I am pleased tosee that there is no concerning ISR lesion in the distal left main/LAD andcircumflex ostia. RECOMMENDATIONS & PLAN 1. Medical Rx for CAD 2. Medical Rx - Aspirin: 81 mg daily 3. Optimize risk factors and medications: HDL > 45 ; LDL < 70 ;Triglycerides < 100 4. Consider staged intervention of the RCA. He should undergo left atrial appendage occlusion with a Watchman FLX device first, and after his 45-dayCT if OAC can be discontinued, we can plan on performing PCI of RCA COMMERCIAL HVAC SERVICE TECHNICIAN ifhe continues to have angina despite medical therapy optimized by Dr. Gray. I am happy to see him in 2 months post Watchman implant to discussthe need/necessity for COMMERCIAL HVAC SERVICE TECHNICIAN PCI based on appropriate use criteria. Thank you for the opportunity to assist in the care of Mr. Burciaga. MILA Jay Paradichlorobenzene Tender [facility] Consent & [place] Protocol The risks, benefits, and alternatives of the procedure were discussed withthe patient and written informed consent was obtained. [place] protocol was followed. TIME OUT conducted just prior tostarting procedure confirmed patient identity, site/side, procedure,patient position, and availability of correct equipment and implants (ifapplicable). Staff Name Title DALTON NOEL Diagnostic Installation Tech Tory Chaves RN Nurse Barb Oliva RN Alla Camarillo CVT Linoleum Tile Layer Stacey Hamilton CVT Monitor Procedures ? US Guided Access ? LHC, Cor Angio Hemodynamics State: Baseline Pressures (mmHg) Site Systolic Diastolic End Diastolic A Wave V Wave Mean AO 134 69 95 LV 148 9 16 LV 144 8 14 LV 143 9 17 AO 135 78 99 Procedure Details Estimated Blood Loss: 10 ml Specimen Collected: None Level of Sedation Achieved: Moderate Procedure Start: 13:36 Procedure End: 14:06 Procedure Time: 30 min Fluoroscopy Time: 3.5 min Cumulative Air Kerma: 550 mGy DAP: 40734 mGy/cm2 Contrast: Omnipaque, 80 ml Physiologic Data Weight: 93.4 kg BSA: 2.12 m2 Vascular Access Time Access Sheath Size 13:36 Percutaneous Puncture to Rt Radial Artery Complications ? No Complications Medications Ordered and Administered Start Time Stop Time Medication Dose Units Route Ordered By Given By 13:10 Fentanyl 50 mcg IV Adinaad, Tory Cotter RN 13:10 Versed (midazolam) 1 mg IV MuradDalton Jacqui RN 13:15 Versed (midazolam) 1 mg IV Murad, Hamiltonal M Tory Chaves RN 13:15 Fentanyl 50 mcg IV Murad, Hamiltonal M Tory Chaves RN 13:37 Fentanyl 25 mcg IV Murad, Tory Cotter RN 13:37 Versed (midazolam) 0.5 mg IV Murad, Tory Cotter RN 13:37 Diphenhydramine 25 mg IV Murad, Tory Cotter RN 13:37 Lidocaine 1% 2 ml Subcut Murad, Bilal M Murad, Bilal M 13:39 Heparin 5000 units IV Murad, Bilal Tory Carlos RN 13:39 Nitroglycerin 200 mcg IA Murad, Bilal M Murad, Bilal M 13:39 Nicardipine 200 mcg IA Murad, Bilal M Murad, Bilal M I personally monitored the patient?s conscious sedation during theprocedure. Conscious sedation starts with the first sedation medication dose ofFentanyl or Versed and ends when the procedure is completed, the patientis stable for recovery status, and the physician or other qualified healthcare professional providing the sedation ends personal geeeqixchiqbem-nl-eteq time with the patient. The medications listed above were verbally ordered by me and read back tome as documented above. Refer to the procedure log report for additional case details. electronically signed on 07/18/2025 5:10:06 PM with status of Final Dalton Noel MD [address], [place] [address] [place] [address] (p) [phone](f) Authorizing ProviderResult TypeResult StatusBilal Emilie CONRADBSCV IMAGING Edited Result - Final * EKG - PRN (07/18/2025 12:01 PM TERRITORY SALES MANAGER MEDICAL) Only the most recent of2 resultswithin the time period is included. ComponentValueRef RangeTest MethodAnalysis TimePerformed AtPathologist Signature InterpretationSinus bradycardia with sinus arrhythmia Nonspecific ST and T wave abnormality Abnormal ECG When compared with ECG of 09-Jul-2025 14:53, Premature ventricular complexes are no longer Present Nonspecific T wave abnormality, worse in Lateral leads BEYOND NOWVentricular Ycyg88EPHMIPSGL NOWAtrial Pngn77JFSGYATFQ NOWP-R Interval 130msBEYOND NOWQRS Jnyyyhrh62tuSKGFBD PDBRK583udSFIAKY KSVHHi923ghQQTPKI NOWP Tqxr96tndpmcyFVNGPR NOWR [place]-22degreesBEYOND NOWT Zala62gwhuhedKDFOPJ NOW Specimen (Source)Anatomical Location / LateralityCollection Method / Volume Collection TimeReceived Time07/18/2025 12:01 PM CST07/18/2025 4:42 PM TERRITORY SALES MANAGER MEDICAL Narrative Authorizing ProviderResult TypeResult StatusBilal Emilie CONRADBSEKG ORDFinal ResultPerforming OrganizationAddressCity/State/ZIP CodePhone Number [facility] NOW [place], [place] * CBC with Platelets no Differential (07/18/2025 11:53 AM TERRITORY SALES MANAGER MEDICAL)ComponentValueRef RangeTest MethodAnalysis TimePerformed AtPathologist SignatureWHITE BLOOD COUNT6.74.5 - 11.0 thou/cu mm07/18/2025 11:59 AM [facility]ST[facility] RED BLOOD COUNT5.304.30 - 5.90 mil/cu mm07/18/2025 11:59 [address] [facility]UNST[facility] LJCWAOYMKMWIZYOMIJJI92.313.5 - 17.5 g/dL11/ 11:59 AM [facility] GIWHICZJLSZWKADHSGMC29.037.0 - 53.0 %07/18/2025 11:59 AM [facility] ECXRQXMDLLNUZ8220 - 100 fL07/18/2025 11:59 AM [facility] XFTTZCVLESIVU81.926.0 - 34.0 pg07/18/2025 11:59 AM [facility] FCGGARRVEYEEFL07.032.0 - 36.0 g/dL07/18/2025 11:59 AM [facility] XCNUZJNTHJFNQ68.711.5 - 15.5 %07/18/2025 11:59 AM [facility] LABORATORYPLATELET RSWFB492908 - 440 thou/cu mm07/18/2025 11:59 AM [facility] ZTAKBOQANMJKA39.06.5 - 11.0 fL07/18/2025 11:59 AM [facility] LABORATORYNRBC0.0%07/18/2025 11:59 AM [facility] LABORATORYABS NRBC0.0 thou /cu mm07/18/2025 11:59 AM [facility] LABORATORYSpecimen (Source) Anatomical Location / LateralityCollection Method / VolumeCollection Time Received TimeBloodBLOOD SPECIMEN / UnknownVenipuncture / Gmoxjos9807/18/2025 11:53 AM CST07/18/2025 11:56 AM TERRITORY SALES MANAGER MEDICAL Narrative Authorizing ProviderResult TypeResult StatusBilal Emilie CONRADBSHEMATOLOGY Final ResultPerforming OrganizationAddressCity/State/ZIP CodePhone Number [facility] SENDOUT [place]IP [phone] [place] [phone] * (ABNORMAL) Lipid Panel (07/18/2025 11:53 AM TERRITORY SALES MANAGER MEDICAL)ComponentValueRef RangeTest MethodAnalysis TimePerformed AtPathologist SignatureCHOLESTEROL,YWTET780(H)100 - 199 mg/dL07/18/2025 12:21 PM [facility] LABORATORYComment: Cholesterol, Total Reference Ranges Desirable <200 mg/dL Borderline 200-239 mg/dL High >=240 mg/dL FWVAPQRBDSEIR024<150 mg/dL07/18/2025 12:21 PM [facility] LABORATORYHDL HDDKOINPWVB61>40 mg/dL07/18/2025 12:21 PM [facility] LABORATORYNON-HDL XNQQGLPJZGX045(H)<145 mg/dl07/18/2025 12:21 PM [facility] CHOL/HDL RATIO3.36<4.50109/17/2024 12:21 PM [facility] LABORATORYLDL JQESLRVFJQJ372(H)<=130 mg/dL07/18/2025 12:21 PM [facility] VLDL CDONKTZNWTL62<=30 mg/dL07/18/2025 12:21 PM [facility] PROVIDER ORDERED UQXJPZBLDXXVY61/13/2025 12:21 PM [facility] Specimen (Source)Anatomical Location / LateralityCollection Method / Volume Collection TimeReceived TimeBloodBLOOD SPECIMEN / UnknownVenipuncture / Unknown 07/18/2025 11:53 AM CST07/18/2025 11:55 AM TERRITORY SALES MANAGER MEDICAL Narrative Authorizing ProviderResult TypeResult StatusBilal Emilie Noel MBBSCHEMISTRY Final ResultPerforming OrganizationAddressCity/State/ZIP CodePhone Number [facility] SENDOUT [place]NAL ZIP [phone] [place] [phone] * (ABNORMAL) Basic Metabolic Panel (07/18/2025 11:53 AM TERRITORY SALES MANAGER MEDICAL)ComponentValueRef RangeTest MethodAnalysis TimePerformed AtPathologist RkleetdzsPZLLTQ730047 - 145 mmol/L109/17/2024 12:21 PM [facility] LABORATORYPOTASSIUM4.03.5 - 5.1 mmol/L109/17/2024 12:21 PM [facility] VCZXNXYQLVGBZIGDLB88839 - 107 mmol/L109/17/2024 12:21 PM [facility] LABORATORYCO2,RJLKJ8668 - 29 mmol/L109/17/2024 12:21 PM [facility] LABORATORYANION GAP95 - 18 07/18/2025 12:21 PM [facility] IDLDPKISOZKNXKDGB623(H)70 - 99 mg/dL 07/18/2025 12:21 PM [facility] LABORATORYCALCIUM9.68.8 - 10.4 mg/dL 07/18/2025 12:21 PM [facility] LABORATORYComment: Reference ranges for this test were updated on 07/10/2024 to reflect our healthy population more accurately. Reference range changes are not retroactively applied to results, but previous results using the same methodology can be interpreted in the context of the new reference range. BEO738 - 23 mg/dL07/18/2025 12:21 PM [facility] LABORATORYCREATININE1.00 0.70 - 1.20 mg/dL07/18/2025 12:21 PM [facility] LABORATORYBUN/CREAT XUCVC9662 - 12:21 PM [facility] RDYDLHJXRAqECP50(L)>90 mL/min/1.56i29607/18/2025 12:21 PM [facility] LABORATORYComment:As of 11/17/2021, eGFR is calculated by the CKD-EPI creatinine equation without race adjustment. ??eGFR can be influenced by muscle mass, exercise, and diet. ??The reported eGFR is an estimation onlyand is only applicable if the renal function is stable.Specimen (Source)Anatomical Location / LateralityCollection Method / VolumeCollection TimeReceived TimeBloodBLOOD SPECIMEN / UnknownVenipuncture / Tbmakuu3507/18/2025 11:53 AM CST07/18/2025 11:55 AM TERRITORY SALES MANAGER MEDICAL Narrative Authorizing ProviderResult TypeResult StatusBilal Emilie CONRADBSCHEMISTRY Final ResultPerforming OrganizationAddressCity/State/ZIP CodePhone Number [facility] SENDOUT [place] [phone] [place] [address] * ANKLE BRACHIAL INDEX BILATERAL (07/12/2025 4:11 PM TERRITORY SALES MANAGER MEDICAL)Anatomical Region LateralityModalityANKLES, ANKLE L, ANKLE RUltrasoundSpecimen (Source) Anatomical Location / LateralityCollection Method / VolumeCollection Time Received Time07/12/2025 4:11 PM TERRITORY SALES MANAGER MEDICAL Impressions 07/12/2025 8:51 PM TERRITORY SALES MANAGER MEDICAL 1. RIGHT LOWER EXTREMITY: Ankle-brachial index of 0.75 reflecting moderate peripheral arterial disease. Arterial ultrasound demonstrates elevation in below-knee popliteal artery peak systolic velocities, reflecting 75-99% stenosis. Patent infrapopliteal vessels with poststenotic, low velocity flow. 2. LEFT LOWER EXTREMITY: Normal ankle brachial index of 1.13. Arterial ultrasound demonstrates patent vasculature with multiphasic waveforms. No significant stenosis identified. Narrative 07/12/2025 8:51 PM TERRITORY SALES MANAGER MEDICAL For Patients: As a result of the 21st Century Cures Act, medical imaging exams and procedure reports are released immediately into your electronic medical record. You may view this report before your referring provider. If you have questions, please contact your health care provider. LOCATION: [facility] DATE: 07/12/2025 EXAM: RESTING ANKLE-BRACHIAL INDICES (ABIs) AND DUPLEX ARTERIAL ULTRASOUND OF THE LOWER EXTREMITIESBILATERALLY INDICATION: Decreased lower extremity pulses, lower extremity pain, claudication. COMPARISON: None. TECHNIQUE: Duplex imaging is performed utilizing grayscale, two-dimensional images, and color-flow imaging. Doppler waveform analysis and spectral Doppler imaging is also performed. TRENT FINDINGS: SEGMENTAL BP RIGHT Brachial: 147 Ankle (PT): 119; Index: 0.75 Ankle (DP): 112; Index: 0.71 Digit: 121; Index: 0.77 LEFT Brachial: 158 Ankle (PT): 170; Index: 1.08 Ankle (DP): 178; Index: 1.13 Digit: 124; Index: 0.79 WAVEFORMS: The dorsalis pedis and posterior tibial arteries show monophasic waveforms on the right and multiphasic waveforms on the left. DUPLEX ARTERIAL ULTRASOUND FINDINGS: LOWER EXTREMITY ARTERIAL DUPLEX EXAM WITH WAVEFORMS RIGHT (cm/s) EIA: 110 PFA: 119 SFA-Proximal: 92 SFA-Mid: 82.7 SFA-Distal: 74 Popliteal: 28 HOME ASSESSMENT NURSE: 21 DPA: 8 (M=monophasic, B=biphasic, T=triphasic) LEFT (cm/s) EIA: 138 HOME CARE AIDE: 115 PFA: 173 SFA-Proximal: 116 SFA-Mid: 77.7 SFA-Distal: 67 Popliteal: 43 Popliteal-Distal: 61.5 HOME ASSESSMENT NURSE: 69 (M=monophasic, B=biphasic, T=triphasic) Procedure Note Jossue Pa MBBS - 07/12/2025 For Patients: As a result of the Cures Act, medical imagingexams and procedure reports are released immediately into your electronicmedical record. You may view this report before your referring provider.If you have questions, please contact your health care provider. LOCATION: [facility] DATE: 07/12/2025 EXAM: RESTING ANKLE-BRACHIAL INDICES (ABIs) AND DUPLEX ARTERIAL ULTRASOUNDOF THE LOWER EXTREMITIES BILATERALLY INDICATION: Decreased lower extremity pulses, lower extremity pain,claudication. COMPARISON: None. TECHNIQUE: Duplex imaging is performed utilizing grayscale,two-dimensional images, and color-flow imaging. Doppler waveform analysisand spectral Doppler imaging is also performed. TRENT FINDINGS: SEGMENTAL BP RIGHT Brachial: 147 Ankle (PT): 119; Index: 0.75 Ankle (DP): 112; Index: 0.71 Digit: 121; Index: 0.77 LEFT Brachial: 158 Ankle (PT): 170; Index: 1.08 Ankle (DP): 178; Index: 1.13 Digit: 124; Index: 0.79 WAVEFORMS: The dorsalis pedis and posterior tibial arteries showmonophasic waveforms on the right and multiphasic waveforms on the left. DUPLEX ARTERIAL ULTRASOUND FINDINGS: LOWER EXTREMITY ARTERIAL DUPLEX EXAM WITH WAVEFORMS RIGHT (cm/s) EIA: 110 PFA: 119 SFA-Proximal: 92 SFA-Mid: 82.7 SFA-Distal: 74 Popliteal: 28 HOME ASSESSMENT NURSE: 21 DPA: 8 (M=monophasic, B=biphasic, T=triphasic) LEFT (cm/s) EIA: 138 HOME CARE AIDE: 115 PFA: 173 SFA-Proximal: 116 SFA-Mid: 77.7 SFA-Distal: 67 Popliteal: 43 Popliteal-Distal: 61.5 HOME ASSESSMENT NURSE: 69 (M=monophasic, B=biphasic, T=triphasic) IMPRESSION: 1. RIGHT LOWER EXTREMITY: Ankle-brachial index of 0.75 reflecting moderate peripheral arterial disease. Arterial ultrasound demonstrates elevation inbelow- knee popliteal artery peak systolic velocities, reflecting 75-99%stenosis. Patent infrapopliteal vessels with poststenotic, low velocityflow. 2. LEFT LOWER EXTREMITY: Normal ankle brachial index of 1.13. Arterialultrasound demonstrates patent vasculature with multiphasic waveforms. Nosignificant stenosis identified. Authorizing ProviderResult TypeResult StatusMohammad Jorge Robbins ANAMARIABSUSFinal Result * US ARTERIAL LOWER EXTREMITY BILATERAL (07/12/2025 4:10 PM TERRITORY SALES MANAGER MEDICAL)Anatomical RegionLateralityModalityLEGS, LEG L, LEG RUltrasoundSpecimen (Source) Anatomical Location / LateralityCollection Method / VolumeCollection Time Received Time07/12/2025 4:10 PM TERRITORY SALES MANAGER MEDICAL Impressions 07/12/2025 8:51 PM TERRITORY SALES MANAGER MEDICAL 1. RIGHT LOWER EXTREMITY: Ankle-brachial index of 0.75 reflecting moderate peripheral arterial disease. Arterial ultrasound demonstrates elevation in below-knee popliteal artery peak systolic velocities, reflecting 75-99% stenosis. Patent infrapopliteal vessels with poststenotic, low velocity flow. 2. LEFT LOWER EXTREMITY: Normal ankle brachial index of 1.13. Arterial ultrasound demonstrates patent vasculature with multiphasic waveforms. No significant stenosis identified. Narrative 07/12/2025 8:51 PM TERRITORY SALES MANAGER MEDICAL For Patients: As a result of the Cures Act, medical imaging exams and procedure reports are released immediately into your electronic medical record. You may view this report before your referring provider. If you have questions, please contact your health care provider. LOCATION: [facility] DATE: 07/12/2025 EXAM: RESTING ANKLE-BRACHIAL INDICES (ABIs) AND DUPLEX ARTERIAL ULTRASOUND OF THE LOWER EXTREMITIESBILATERALLY INDICATION: Decreased lower extremity pulses, lower extremity pain, claudication. COMPARISON: None. TECHNIQUE: Duplex imaging is performed utilizing grayscale, two-dimensional images, and color-flow imaging. Doppler waveform analysis and spectral Doppler imaging is also performed. TRENT FINDINGS: SEGMENTAL BP RIGHT Brachial: 147 Ankle (PT): 119; Index: 0.75 Ankle (DP): 112; Index: 0.71 Digit: 121; Index: 0.77 LEFT Brachial: 158 Ankle (PT): 170; Index: 1.08 Ankle (DP): 178; Index: 1.13 Digit: 124; Index: 0.79 WAVEFORMS: The dorsalis pedis and posterior tibial arteries show monophasic waveforms on the right and multiphasic waveforms on the left. DUPLEX ARTERIAL ULTRASOUND FINDINGS: LOWER EXTREMITY ARTERIAL DUPLEX EXAM WITH WAVEFORMS RIGHT (cm/s) EIA: 110 PFA: 119 SFA-Proximal: 92 SFA-Mid: 82.7 SFA-Distal: 74 Popliteal: 28 HOME ASSESSMENT NURSE: 21 DPA: 8 (M=monophasic, B=biphasic, T=triphasic) LEFT (cm/s) EIA: 138 HOME CARE AIDE: 115 PFA: 173 SFA-Proximal: 116 SFA-Mid: 77.7 SFA-Distal: 67 Popliteal: 43 Popliteal-Distal: 61.5 HOME ASSESSMENT NURSE: 69 (M=monophasic, B=biphasic, T=triphasic) Procedure Note Jossue Pa MBBS - 07/12/2025 For Patients: As a result of the 21st Century Cures Act, medical imagingexams and procedure reports are released immediately into your electronicmedical record. You may view this report before your referring provider.If you have questions, please contact your health care provider. LOCATION: [facility] DATE: 07/12/2025 EXAM: RESTING ANKLE-BRACHIAL INDICES (ABIs) AND DUPLEX ARTERIAL ULTRASOUNDOF THE LOWER EXTREMITIES BILATERALLY INDICATION: Decreased lower extremity pulses, lower extremity pain,claudication. COMPARISON: None. TECHNIQUE: Duplex imaging is performed utilizing grayscale,two-dimensional images, and color-flow imaging. Doppler waveform analysisand spectral Doppler imaging is also performed. TRENT FINDINGS: SEGMENTAL BP RIGHT Brachial: 147 Ankle (PT): 119; Index: 0.75 Ankle (DP): 112; Index: 0.71 Digit: 121; Index: 0.77 LEFT Brachial: 158 Ankle (PT): 170; Index: 1.08 Ankle (DP): 178; Index: 1.13 Digit: 124; Index: 0.79 WAVEFORMS: The dorsalis pedis and posterior tibial arteries showmonophasic waveforms on the right and multiphasic waveforms on the left. DUPLEX ARTERIAL ULTRASOUND FINDINGS: LOWER EXTREMITY ARTERIAL DUPLEX EXAM WITH WAVEFORMS RIGHT (cm/s) EIA: 110 PFA: 119 SFA-Proximal: 92 SFA-Mid: 82.7 SFA-Distal: 74 Popliteal: 28 HOME ASSESSMENT NURSE: 21 DPA: 8 (M=monophasic, B=biphasic, T=triphasic) LEFT (cm/s) EIA: 138 HOME CARE AIDE: 115 PFA: 173 SFA-Proximal: 116 SFA-Mid: 77.7 SFA-Distal: 67 Popliteal: 43 Popliteal-Distal: 61.5 HOME ASSESSMENT NURSE: 69 (M=monophasic, B=biphasic, T=triphasic) IMPRESSION: 1. RIGHT LOWER EXTREMITY: Ankle-brachial index of 0.75 reflecting moderate peripheral arterial disease. Arterial ultrasound demonstrates elevation inbelow- knee popliteal artery peak systolic velocities, reflecting 75-99%stenosis. Patent infrapopliteal vessels with poststenotic, low velocityflow. 2. LEFT LOWER EXTREMITY: Normal ankle brachial index of 1.13. Arterialultrasound demonstrates patent vasculature with multiphasic waveforms. Nosignificant stenosis identified. Authorizing ProviderResult TypeResult StatusMohamsusan ZARAGOZAUSFinal Result * (ABNORMAL) CREATININE,ISTAT (07/12/2025 2:09 PM TERRITORY SALES MANAGER MEDICAL) Only the most recent of2 resultswithin the time period is included. ComponentValueRef RangeTest MethodAnalysis TimePerformed AtPathologist Signature CREATININE, POCT1.000.57 - 1.11 mg/dL07/12/2025 2:20 PM [facility]STUNST[facility] LABORATORYComment:Caution: Patients taking Hydroxyurea have falsely increased iStat Creatinine results. Verify creatinine results ordering a Creatinine (61427.2)eGFR80(L)>90 mL/min/1.67k95307/12/2025 2:20 PM CSTUNST. [facility] LABORATORYComment:As of 11/17/2021, eGFR is calculated by the CKD-EPI creatinine equation without race adjustment. eGFR can be influenced by muscle mass, exercise, and diet. The reported eGFR is an estimation only andis only applicable if the renal function is stable.Specimen (Source)Anatomical Location / LateralityCollection Method / VolumeCollection TimeReceived TimeBloodBLOOD SPECIMEN / Dhmqhad2107/12/2025 2:09 PM CST07/12/2025 2:20 PM TERRITORY SALES MANAGER MEDICAL Narrative Authorizing ProviderResult TypeResult StatusMohammad Jorge ZARAGOZA CHEMISTRYFinal ResultPerforming OrganizationAddressCity/State/ZIP CodePhone Number [facility] SENDOUT [place] [phone] [place] [address] * CTA HEAD AND NECK CAROTID (07/12/2025 2:07 PM TERRITORY SALES MANAGER MEDICAL)Anatomical RegionLaterality ModalityBRAIN, NECKComputed TomographySpecimen (Source)Anatomical Location / LateralityCollection Method / VolumeCollection TimeReceived Time07/12/2025 2:07 PM TERRITORY SALES MANAGER MEDICAL Impressions 07/12/2025 2:45 PM TERRITORY SALES MANAGER MEDICAL HEAD CT: 1. ??No intracranial hemorrhage, mass lesions, hydrocephalus or CT evidence for an acute infarct. 2. ??Mild diffuse cerebral parenchymal volume loss. Presumed chronic hypertensive/microvascular ischemic white matter changes. HEAD CTA: 1. ??Moderate narrowing of M2 segment of the left middle cerebral artery due to calcified thromboembolus. 2. ??Otherwise no high-grade stenoses or occlusion of the major intracranial arteries. No intracranial aneurysms. NECK CTA: 1. ??Approximately 40-50% narrowing of the origin of the left internal carotid artery based on the NASCET criteria. 2. ??No hemodynamically significant narrowing of the right internal carotid artery based on the NASCET criteria. 3. ??Mild to moderate narrowing of the origin of the right vertebral artery. Otherwise both vertebral arteries are patent throughout their course in the neck. Narrative 07/12/2025 2:45 PM TERRITORY SALES MANAGER MEDICAL For Patients: As a result of the Cures Act, medical imaging exams and procedure reports are released immediately into your electronic medical record. You may view this report before your referring provider. If you have questions, please contact your health care provider. EXAM: CTA HEAD AND NECK CAROTID LOCATION: [facility] DATE: 07/12/2025 INDICATION: free text)->carotid artery stenosis COMPARISON: Head and neck CT angiogram 09/01/2022 CONTRAST: IOHEXOL 350 MG IODINE/ML IV 500 ML BOTTLE: 85mL TECHNIQUE: Head and neck CT angiogram with IV contrast. Noncontrast head CT followed by axial helical CT images of the head and neck vessels obtained during the arterial phase of intravenous contrastadministration. Axial 2D reconstructed images and multiplanar 3D MIP reconstructed images of the head and neck vessels were performed by the technologist. Dose reduction techniques were used. All stenosis measurements made according to NASCET criteria unless otherwise specified. FINDINGS: NONCONTRAST HEAD CT: INTRACRANIAL CONTENTS: No intracranial hemorrhage. Couple of punctate foci of calcifications in theposterior left frontal lobe and the left parietal lobe and in the left sylvian fissure. Mild diffuse cerebral parenchymal volume loss. No midline shift. The basilar cisterns are patent. Mild periventricular and scattered foci of deep white matter hypodensities involving both cerebral hemispheres. No CT evidence for an acute infarct. VISUALIZED ORBITS/SINUSES/MASTOIDS: No intraorbital abnormality. No paranasal sinus mucosal disease. No middle ear or mastoid effusion. BONES/SOFT TISSUES: No acute abnormality. HEAD CTA: ANTERIOR CIRCULATION: No high-grade stenoses of the proximal major intracranial arteries. Moderate narrowing of M2 segment of the left middle cerebral artery due to calcified thromboembolus. Standardcircle of Daniels anatomy. POSTERIOR CIRCULATION: No stenosis/occlusion, aneurysm, or high flow vascular malformation. Dominant left and smaller right vertebral artery contribute to a normal basilar artery. DURAL VENOUS SINUSES: Expected enhancement of the major dural venous sinuses. NECK CTA: RIGHT CAROTID: Mild atherosclerotic calcification of the right carotid bulb and proximal right internal carotid artery. No hemodynamically significant narrowing of the right internal carotid artery based on the NASCET criteria. LEFT CAROTID: Moderate atherosclerotic calcification of the left carotid bulb and proximal left internal carotid artery. Approximately 40-50% narrowing of the origin of the left internal carotid artery based on the NASCET criteria. VERTEBRAL ARTERIES: Mild to moderate narrowing of the origin of the right vertebral artery. Otherwise both vertebral arteries are patent throughout their course in the neck. Dominant left and smallerright vertebral arteries. AORTIC ARCH: Classic aortic arch anatomy with no significant stenosis at the origin of the great vessels. NONVASCULAR STRUCTURES: The lung apices are clear. Mild degenerative changes of cervical spine. Procedure Note Lashonda Roblero MD - 07/12/2025 For Patients: As a result of the Cures Act, medical imagingexams and procedure reports are released immediately into your electronicmedical record. You may view this report before your referring provider.If you have questions, please contact your health care provider. EXAM: CTA HEAD AND NECK CAROTID LOCATION: [facility] MEDICAL IMAGING DATE: 07/12/2025 INDICATION: free text)->carotid artery stenosis COMPARISON: Head and neck CT angiogram 09/01/2022 CONTRAST: IOHEXOL 350 MG IODINE/ML IV 500 ML BOTTLE: 85mL TECHNIQUE: Head and neck CT angiogram with IV contrast. Noncontrast headCT followed by axial helical CT images of the head and neck vesselsobtained during the arterial phase of intravenous contrast administration.Axial 2D reconstructed images and multiplanar 3D MIP reconstructed imagesof the head and neck vessels were performed by the technologist. Dosereduction techniques were used. All stenosis measurements made accordingto NASCET criteria unless otherwise specified. FINDINGS: NONCONTRAST HEAD CT: INTRACRANIAL CONTENTS: No intracranial hemorrhage. Couple of punctate fociof calcifications in the posterior left frontal lobe and the left parietallobe and in the left sylvian fissure. Mild diffuse cerebral parenchymalvolume loss. No midline shift. The basilar cisterns are patent. Mildperiventricular and scattered foci of deep white matter hypodensitiesinvolving both cerebral hemispheres. No CT evidence for an acuteinfarct. VISUALIZED ORBITS/SINUSES/MASTOIDS: No intraorbital abnormality. Noparanasal sinus mucosal disease. No middle ear or mastoid effusion. BONES/SOFT TISSUES: No acute abnormality. HEAD CTA: ANTERIOR CIRCULATION: No high-grade stenoses of the proximal majorintracranial arteries. Moderate narrowing of M2 segment of the left middlecerebral artery due to calcified thromboembolus. Standard [place] of Willisanatomy. POSTERIOR CIRCULATION: No stenosis/occlusion, aneurysm, or high flowvascular malformation. Dominant left and smaller right vertebral arterycontribute to a normal basilar artery. DURAL VENOUS SINUSES: Expected enhancement of the major dural venoussinuses. NECK CTA: RIGHT CAROTID: Mild atherosclerotic calcification of the right carotidbulb and proximal right internal carotid artery. No hemodynamicallysignificant narrowing of the right internal carotid artery based on theNASCET criteria. LEFT CAROTID: Moderate atherosclerotic calcification of the left carotidbulb and proximal left internal carotid artery. Approximately 40-50%narrowing of the origin of the left internal carotid artery based on theNASCET criteria. VERTEBRAL ARTERIES: Mild to moderate narrowing of the origin of the right vertebral artery. Otherwise both vertebral arteries are patent throughouttheir course in the neck. Dominant left and smaller right vertebralarteries. AORTIC ARCH: Classic aortic arch anatomy with no significant stenosis atthe origin of the great vessels. NONVASCULAR STRUCTURES: The lung apices are clear. Mild degenerativechanges of cervical spine. IMPRESSION: HEAD CT: 1. No intracranial hemorrhage, mass lesions, hydrocephalus or CT evidencefor an acute infarct. 2. Mild diffuse cerebral parenchymal volume loss. Presumed chronic hypertensive/microvascular ischemic white matter changes. HEAD CTA: 1. Moderate narrowing of M2 segment of the left middle cerebral arterydue to calcified thromboembolus. 2. Otherwise no high-grade stenoses or occlusion of the majorintracranial arteries. No intracranial aneurysms. NECK CTA: 1. Approximately 40-50% narrowing of the origin of the left internalcarotid artery based on the NASCET criteria. 2. No hemodynamically significant narrowing of the right internal carotidartery based on the NASCET criteria. 3. Mild to moderate narrowing of the origin of the right vertebralartery. Otherwise both vertebral arteries are patent throughout theircourse in the neck. Authorizing ProviderResult TypeResult StatusMohammad Jorge Shaymarceelizabeth MBBSCTFinal Result * (ABNORMAL) INR - POCT [[id number]] - Standing Order (07/10/2025 11:11 AM [employer]) ComponentValueRef RangeTest MethodAnalysis TimePerformed AtPathologist SignatureINR3.3(H)ratio07/10/2025 11:28 AM [facility] [place] Comment: INRs >2.9 may be falsely elevated in patients receiving either unfractionated Heparin or Low Molecular Weight Heparin. Follow up testing in a hospital laboratory may be helpful if clinically indicated. INR results of > or = 5.0 should be verified using the standard venipuncture procedure. Reference Range ? 0.9-1.1 Moderate-intensity Warfarin Therapy 2.0-3.0 Higher-intensity Warfarin Therapy ?? 3.0-4.0 PROTHROMBIN TIMEP39.1(H)10.5 - 13.1 sec07/10/2025 11:28 AM [facility] [place] Point of care fingerstick Prothrombin Time/INR results may vary from venous Prothrombin Time/INR methodologies. Any results exhibiting inconsistency with the patient's clinical status should be repeated using a venous Prothrombin Time/INR method. Specimen (Source)Anatomical Location / LateralityCollection Method / Volume Collection TimeReceived TimeBloodBLOOD SPECIMEN / UnknownQuest Collect / Unknown 07/10/2025 11:11 AM CST07/10/2025 11:11 AM [facility] Narrative Authorizing ProviderResult TypeResult StatusRangreer Huggins MDLABORATORYFinal ResultPerforming OrganizationAddressCity/State/ZIP CodePhone Number [facility] [address] [place] [address], [place] [phone] [facility] [place] [place] [id number] [place] [address], [place] [phone] * US CAROTID DUPLEX BILATERAL (06/26/2025 2:39 PM CDT)Anatomical Region LateralityModalityCAROTID, NECKUltrasoundSpecimen (Source)Anatomical Location / LateralityCollection Method / VolumeCollection TimeReceived Time06/26/2025 1:49 PM CDT Narrative 06/26/2025 9:45 PM CDT VASCULAR ULTRASOUND REPORT RAMY RHODES Accession#: ?? [id number] : ?1950 ??Study Date: ?? 06/26/2025 1:49:47 PM Age: ?74 years ?? Tech: ? HCS Gender: M ?Referring MD: KRIS PHILIP Site: [facility] Study performed: ?Carotid Indication for Study: carotid stenosis Study Quality: ?Good TECHNIQUE: The extracranial carotid arteries, vertebral arteries and subclavian arteries were examined per exam protocol with duplex ultrasound, color-flow and spectral Doppler. Flow velocities including peak systolic (PSV), end diastolic (EDV), and velocity ratios if applicable were documented at sites per exam protocol. IMPRESSION: 1. Based on the ICA velocities, ICA/CCA ratio, and 2D images there is plaque causing <50% stenosis in the right internal carotid artery and there is plaque causing >70% stenosis in the left internal carotid artery. 2. Normal antegrade flow within bilateral vertebral arteries. 3. Multiphasic flow within bilateral subclavian arteries. COMPARISON: Compared to prior study No previous ultrasound, previous CTA 09/01/2022. FINDINGS: Elevated velocities in left external carotid artery and proximal internal carotid artery. RIGHT FINDINGS: Antegrade flow in the right vertebral artery. Normal multiphasic right subclavian artery flow. LEFT FINDINGS: Antegrade flow in the left vertebral artery. Normal multiphasic left subclavian artery flow. MEASUREMENTS: +--------+--------+------+--------+--------+ RIGHT ?? RIGHT ?LEFT ?LEFT ?? +--------+--------+------+--------+--------+ PSV cm/s EDV cm/s Vessel PSV cm/s EDV cm/s +--------+--------+------+--------+--------+ ?? 82 ? 14 ?? P. CCA ?? 83 ? 21 ?? +--------+--------+------+--------+--------+ ?? 74 ? 25 ?? D. CCA ?? 61 ? 22 ?? +--------+--------+------+--------+--------+ ??141 ? 24 ?? P. ICA ??305 ?116 ?? +--------+--------+------+--------+--------+ ?? 66 ? 19 ?? M. ICA ?? 93 ? 33 ?? +--------+--------+------+--------+--------+ ?? 68 ? 21 ?? D. ICA ?? 98 ? 32 ?? +--------+--------+------+--------+--------+ ??121 ? 26 ?? ECA ?216 ? 59 ?? +--------+--------+------+--------+--------+ +-----+ +----+ RIGHT ? LEFT +-----+ +----+ 134 Subclavian Artery (cm/s) 135 +-----+ +----+ 35 ?? Vertebral Artery (cm/s) 44 +-----+ +----+ 1.9 ? ICA/CCA Ratio ? 5.0 +-----+ +----+ Peter Osorio MD. Electronically signed on 06/26/2025 9:45:26 PM This study was performed and interpreted by a service accredited by the Intersocietal AccreditationCommission (IAC/Vascular), [email or web address]/vascular Report generated by [email or web address]. ??Final ?? Procedure Note Peter Osorio MD - 06/26/2025 VASCULAR ULTRASOUND REPORT RAMY RHODES : 1950 Study Date: 06/26/2025 1:49:47 PM Age: 74 years Tech: HCS Gender: M Referring MD: KRIS PHILIP Site: [facility] Study performed: Carotid Indication for Study: carotid stenosis Study Quality: Good TECHNIQUE: The extracranial carotid arteries, vertebral arteries and subclavianarteries were examined per exam protocol with duplex ultrasound,color-flow and spectral Doppler. Flow velocities including peak systolic(PSV), end diastolic (EDV), and velocity ratios if applicable weredocumented at sites per exam protocol. IMPRESSION: 1. Based on the ICA velocities, ICA/CCA ratio, and 2D images there isplaque causing <50% stenosis in the right internal carotid artery andthere is plaque causing >70% stenosis in the left internal carotidartery. 2. Normal antegrade flow within bilateral vertebral arteries. 3. Multiphasic flow within bilateral subclavian arteries. COMPARISON: Compared to prior study No previous ultrasound, previous CTA 09/01/2022. FINDINGS: Elevated velocities in left external carotid artery and proximal internalcarotid artery. RIGHT FINDINGS: Antegrade flow in the right vertebral artery. Normal multiphasic rightsubclavian artery flow. LEFT FINDINGS: Antegrade flow in the left vertebral artery. Normal multiphasic leftsubclavian artery flow. MEASUREMENTS: +--------+--------+------+--------+--------+ RIGHT RIGHT LEFT LEFT +--------+--------+------+--------+--------+ PSV cm/s EDV cm/s Vessel PSV cm/s EDV cm/s +--------+--------+------+--------+--------+ 82 14 P. CCA 83 21 +--------+--------+------+--------+--------+ 74 25 D. CCA 61 22 +--------+--------+------+--------+--------+ 141 24 P. ICA 305 116 +--------+--------+------+--------+--------+ 66 19 M. ICA 93 33 +--------+--------+------+--------+--------+ 68 21 D. ICA 98 32 +--------+--------+------+--------+--------+ 121 26 ECA 216 59 +--------+--------+------+--------+--------+ +-----+ +----+ RIGHT LEFT +-----+ +----+ 134 Subclavian Artery (cm/s) 135 +-----+ +----+ 35 Vertebral Artery (cm/s) 44 +-----+ +----+ 1.9 ICA/CCA Ratio 5.0 +-----+ +----+ Peter Osorio MD. Electronically signed on 06/26/2025 9:45:26 PM This study was performed and interpreted by a service accredited by the Intersocietal Accreditation Commission (IAC/Vascular), [email or web address]/vascular Report generated by [email or web address]. Final Authorizing ProviderResult TypeResult StatusMohammabairon Philip MBBSUSFinal Result * CT CARDIAC MORPHOLOGY W CV DUAL READ (06/13/2025 2:16 PM CDT)Anatomical Region LateralityModalityHEARTComputed TomographySpecimen (Source)Anatomical Location / LateralityCollection Method / VolumeCollection TimeReceived Time Narrative 06/13/2025 6:02 PM CDT Results are automatically released to your [employer] ([employer]) account once available, in compliance with federal regulations. ??This means that you may see your results before your provider has had a chance to review them. ??Please allow 2-3 business days for your provider to comment on the results. THIS IS THE CARDIOLOGY REPORT OF A DUAL READ STUDY. READ THE SEPARATE RADIOLOGY REPORT FOR POTENTIAL INCIDENTAL FINDINGS. REPORTS MAY BE FINALIZED AT DIFFERENT TIMES. CT CARDIAC MORPHOLOGY STUDY (WATCHMAN PROTOCOL), 06/13/2025 INDICATION: Ischemic stroke, paroxysmal atrial fibrillation. CONCLUSIONS: See separate radiology report for non-cardiac findings. The left atrial appendage is multilobed, broccoli shaped with a small diverticulum directed posteriorly in the region of the potential left atrial appendage occluder device landing zone. The landing zone ostium measures 24 x 21 mm with minimal perpendicular distance 25 mm. The left atrial appendage is free of thrombus. Severe biatrial enlargement. Grossly intact interatrial septum. Severe coronary artery disease is present. Stents are present in the left main, proximal left anterior descending, and proximal left circumflex coronary artery. Probably severe disease in the mid right coronary artery. This study was not optimized for evaluation of the coronary arteries. Moderate aneurysmal dilation of the mid ascending aorta, measuring 45 x 44 mm in diameter. The ascending aorta jftq-fc-fhywlu index is 9.0 cm2/m. TECHNIQUE: ECG-gated CT angiogram of the heart with intravenous contrast Omnipaque 350, 80 mL, was performed on a Siemens SOMATOM Force CT scanner. The imaging protocol was individualized to minimize radiation exposure. The following ECG-gated acquisition protocol was used: Prospective scan. Pulse range 300-400 msec. Delayed imaging was performed for assessment of the left atrial appendage. Tube potential: 90 kV. Tube current: 2317 mAs. Total DLP: 218 mGy*cm; mSv: 3.0; CTDI: 19.17. Image post processing was performed on a [employer] Workstation. Images were reconstructed at a slice thickness of 0.6 mm with 0.3 mm overlap. The patient received the following medications: None. Average heart rate during the study not applicable. There were no complications. TECHNICAL QUALITY: Excellent. ?? FINDINGS PULMONARY VEINS: There are two right-sided and two left-sided pulmonary veins with no evidence of stenosis or obstruction. LEFT ATRIUM AND LEFT ATRIAL APPENDAGE FINDINGS: The left atrial appendage is multilobed, broccoli shaped with a small diverticulum directed posteriorly in the region of the potential left atrial appendage occluder device landing zone. The landing zone ostium measures 24 x 21 mm with minimal perpendicular distance 25 mm. Severe biatrial enlargement. Grossly intact interatrial septum. CARDIAC: Normal right and left ventricular chamber sizes. Biatrial enlargement. Normal appearance of the mitral valve leaflets. Mild aortic valve leaflet calcification. Trileaflet aortic valve. No pericardial effusion. CORONARY ARTERIES: Right dominant coronary artery system. Normal origins. Coronary artery stents are present in the left main, proximal left anterior descending, and proximal left circumflex coronary artery. The stents appear grossly patent. Probable severe stenosis of the right coronary artery. This study was not optimized for evaluation of the coronary arteries. VESSELS: Mild atherosclerosis is present in the thoracic aorta. Moderate aneurysmal dilation of the ascending aorta, measuring 45 x 44 mm. The ascending aorta urfw-ni-hkvocu index is 9.0 cm2/m. Bhavya Prado MD [facility] EJT/car Authorizing ProviderResult TypeResult StatusBilal Emilie Murad MBBSCTFinal Result * CT CARDIAC MORPHOLOGY W RAD DUAL READ (06/13/2025 2:16 PM CDT)Anatomical RegionLateralityModalityHEARTComputed TomographySpecimen (Source)Anatomical Location / LateralityCollection Method / VolumeCollection TimeReceived Time 06/13/2025 2:16 PM CDT Impressions 06/13/2025 4:21 PM CDT 1. Please refer to loader's dictation for the cardiac CT report. 2. ??No significant incidental extracardiac findings. Narrative 06/13/2025 4:21 PM CDT For Patients: As a result of the Cures Act, medical imaging exams and procedure reports are released immediately into your electronic medical record. You may view this report before your referring provider. If you have questions, please contact your health care provider. *THIS IS THE RADIOLOGY OVER READ REPORT OF A DUAL READ STUDY. READ THE SEPARATE CARDIOLOGY REPORT FOR CARDIOVASCULAR FINDINGS. REPORTS MAY BE FINALIZED AT DIFFERENT TIMES.* EXAM: OVERREAD: DETAILED [place] RADIOLOGY EXTRACARDIAC OVERREAD OF CARDIAC CT LOCATION: [facility] MEDICAL IMAG[facility] DATE: 06/13/2025 INDICATION: Cardiac - Other TECHNIQUE: Dose reduction techniques were used. COMPARISON: None. FINDINGS: ?? LIMITED CHEST: Negative. LIMITED MEDIASTINUM: Negative. LIMITED UPPER ABDOMEN: Negative. LIMITED MUSCULOSKELETAL: Negative. Procedure Note Gene, Torrey Peter, MD - 06/13/2025 For Patients: As a result of the Century Cures Act, medical imagingexams and procedure reports are released immediately into your electronicmedical record. You may view this report before your referring provider.If you have questions, please contact your health care provider. *THIS IS THE RADIOLOGY OVER READ REPORT OF A DUAL READ STUDY. READ THESEPARATE CARDIOLOGY REPORT FOR CARDIOVASCULAR FINDINGS. REPORTS MAY BEFINALIZED AT DIFFERENT TIMES.* EXAM: OVERREAD: DETAILED [place] RADIOLOGY EXTRACARDIAC OVERREAD OFCARDIAC CT LOCATION: [facility] MEDICAL IMAGING DATE: 06/13/2025 INDICATION: Cardiac - Other TECHNIQUE: Dose reduction techniques were used. COMPARISON: None. FINDINGS: LIMITED CHEST: Negative. LIMITED MEDIASTINUM: Negative. LIMITED UPPER ABDOMEN: Negative. LIMITED MUSCULOSKELETAL: Negative. IMPRESSION: 1. Please refer to loader's dictation for the cardiac CT report. 2. No significant incidental extracardiac findings. Authorizing ProviderResult TypeResult StatusBilal Emilie Murad MBBSCTFinal Result * XR SHOULDER 4 VIEWS RIGHT (06/10/2025 9:48 AM CDT)Anatomical RegionLaterality ModalitySHOULDERS, SHOULDER RComputed RadiographySpecimen (Source)Anatomical Location / LateralityCollection Method / VolumeCollection TimeReceived Time Impressions 06/10/2025 12:14 PM CDT Moderate glenohumeral joint degenerative joint disease. All services were personally performed by Krissy Pablo MD. ??Documentation performed by Sherita Orona ATC, based on my observation of services performed and provider statements to me. Krissy Pablo MD 06/10/2025 Narrative 06/10/2025 12:14 PM CDT This radiology exam was performed at the [place] location in the [facility] Radiology Department and interpreted by Krissy Pablo MD. HISTORY: A 74 y.o. male with right shoulder pain without history of trauma. TECHNICAL: Four views were obtained of the right shoulder consisting of a, AP, Grashey with 20 degrees external rotation, scapular Y and axillary. FINDINGS: No evidence of fracture or dislocation. ??Moderate glenohumeral joint degenerative disease with joint space narrowing and humeral head osteophyte formation. Mild acromioclavicular joint degenerative joint disease. ??Type II acromion. ??No blastic or lytic lesions. Authorizing ProviderResult TypeResult StatusKrissy Pablo MDGENERAL IMAGING Final Result * CT CHEST WO (04/18/2024 12:00 AM CDT)Anatomical RegionLateralityModalityCHEST, THORAX, HEARTComputed Tomography Narrative Authorizing ProviderResult TypeResult StatusRangreer Reji Huggins MDCTFinal Result * US ABD AORTA SCREENING (03/16/2023 9:27 AM CDT)Anatomical RegionLaterality ModalityAbdomen, AORTAUltrasoundSpecimen (Source)Anatomical Location / LateralityCollection Method / VolumeCollection TimeReceived Time03/16/2023 9:27 AM CDT Impressions 03/16/2023 9:36 AM [...] provider. EXAM: US ABD AORTA SCREENING LOCATION: [facility] DATE: 03/16/2023 INDICATION: Screening For Aaa [...] provider. EXAM: US ABD AORTA SCREENING LOCATION: [facility] DATE: 03/16/2023 INDICATION: Screening For Aaa [...] cm. IMPRESSION: 1. No abdominal aortic aneurysm. Authorizing ProviderResult TypeResult StatusAmber Preethi Molina PAUSFinal Result from Last 3 Months or Most Recently Relevant to Health Maintenance Insurance Advance Directives TypeDate RecordedPatient RepresentativeExplanationHealthcare Directive09/29/2022 09/29/2022 * Full Code (Latest Code Status on File) Date ActivatedDate InactivatedComments10/22/2022 2:39 PM2 8:19 PMQuestion AnswerCommentsCode Status Discussion:* Reviewed Preferences Care Teams Team MemberRelationshipSpecialtyStart [place] [id number] [place] [address] PCP - GeneralFamily Practice11/30/21 [place] [address] [place] [address] Consulting PhysicianCardiovascular Disease02/26/25
--- NOTE | 2025-08-26 11:47 | ED.GENADULT ---
HPI - General Adult General Date Seen: 08/26/25 Chief complaint: Neuro Symptoms/Altered Deficit Stated complaint: L side numbness Time Seen by Provider: 08/26/25 11:02 History of Present Illness HPI narrative: Patient is a 74-year-old man with past medical history notable for coronary artery disease status post stents, atrial fibrillation, currently anticoagulated on Coumadin, TIA/stroke who presents for evaluation of left-sided numbness which has been present for 5 days. About a month ago, he had an angiogram to follow-up on persistent chest pain. He tells me that the angiogram was unremarkable, stents appeared patent. A couple days after his angiogram he developed facial pain and rash and was diagnosed with shingles. The rash and facial pain have largely resolved but now he has this numbness/paresthesia which he says involves the entire left half of his body like there was a line drawn down from the top of his head to his feet. Symptoms involve the left side of his head including the left side of the inside of his mouth, his left torso, arm, back, and left leg. He feels like he is having some discoordination in his left arm as well, with more frequent dropping of things. Has a 70% carotid stenosis apparently on the left. Plans for a Watchman but currently still anticoagulated. Related Data Home Medications ?Medication ?Instructions ?Recorded ?Confirmed escitalopram oxalate 20 mg tablet 20 mg PO DAILY 08/12/22 08/26/25 metoprolol succinate 25 mg 25 mg PO DAILY 08/12/22 08/26/25 tablet,extended release 24 hr nortriptyline 10 mg capsule 20 mg PO DAILY 08/12/22 08/26/25 warfarin 5 mg tablet (Jantoven) 5 mg PO DAILY 08/12/22 08/26/25 atorvastatin 40 mg tablet 40 mg PO DAILY 01/05/25 08/26/25 clopidogrel 75 mg tablet 75 mg PO DAILY 01/05/25 08/26/25 isosorbide mononitrate 30 mg 30 mg PO DAILY 01/05/25 08/26/25 tablet,extended release 24 hr losartan 25 mg tablet 25 mg PO DAILY 01/05/25 08/26/25 sertraline 100 mg tablet 100 mg PO QA 01/05/25 08/26/25 Previous Rx's ?Medication ?Instructions ?Recorded meclizine 25 mg tablet 25 mg PO QID #20 tabs 01/05/25 ondansetron HCl 4 mg tablet 4 mg PO Q6H #10 tabs 01/05/25 rosuvastatin 40 mg tablet (Crestor) 40 mg PO DAILY #30 tabs 08/26/25 Allergies Allergy/AdvReac Type Severity Reaction Status Date / Time No Known Drug Allergies Allergy Verified 08/26/25 14:09 Review of Systems Status of ROS: Reports: 10 or more systems reviewed and unremarkable except as noted in History and below [facility] Social History Smoking Status: Never smoker Do you use any of these nicotine containing products: None Second hand tobacco smoke exposure: No How often do you have a drink containing alcohol: 4 or more times a week How many standard drinks containing alcohol do you have on a typical day: 3 or 4 How often do you have six or more drinks on one occasion: Daily or almost daily AUDIT-C Alcohol total score: 9 Non-prescribed substance use: denies use service: No Exam Narrative: Exam Narrative: Vital signs reviewed In general, an alert, nontoxic elderly male. Looks comfortable, breathing easily. Head: Normocephalic, atraumatic. Eyes: Sclera is injected on the left. Pupils equal reactive, extraocular movements are full. ENT: Mucous membranes moist. Neck: Supple without adenopathy. Heart: Regular rate and rhythm without murmur. Lungs: Clear. No increased work of breathing, crackles or wheezes. Abdomen: Soft, nontender to palpation. Extremities: Well perfused, pulses intact. No significant edema. Neurologic: Alert, conversant. Speech fluent, face symmetric. Moves all extremities equally. He has some ataxia particularly with the left hand on finger-nose testing, gait is stable. He notes that the entire left side of his body feels ?asleep with sensation testing. Skin: Warm, dry well perfused. Affect: Normal. Const: Vital Signs, click to edit/add: Vital Signs - 24 hr 08/26/25 11:01 08/26/25 13:56 08/26/25 16:02 Temperature 98.3 F 97.5 F L 97.3 F L Pulse Rate [Right Pulse Oximeter] 81 72 77 Respiratory Rate 18 18 19 Blood Pressure [Ri ght Upper Arm] 146/95 H 148/100 H 164/110 H Pulse Oximetry 97 98 98 Oxygen Delivery Me thod Room Air Room Air Room Air Course Course ED Course: Patient presents with paresthesias/numbness, does not seem to be true numbness of the entire left side of his body, some discoordination of his left hand although I do not know how much of that is new. He has a slight tremor in both hands which he says is old. He relates this to being on so many medications. He is certainly high risk for stroke, will check an INR, it sounds as if he takes his Coumadin fairly reliably. Other diagnostic considerations would be metabolic derangement, seems unlikely for this to be related to his shingles given it involves the entire left side of his body. Patient is therapeutic on his INR with a INR of 2.4. Confirm with him that he does still take Plavix as well. Had a CT of the head which I reviewed, I did not see any acute findings, radiology report reviewed and unremarkable. CT angiogram of the head and neck read by Radiology preliminarily as not showing any significant findings. Final report pending. Labs are reviewed in their entirety, his high sensitivity troponin initially somewhat elevated at 53 but perhaps not surprising given his known coronary artery disease and recent angiogram. Given that the recent angiogram was reassuring I am not overly concerned about this, did recheck it and it is stable at 53. Magnesium was 1.9, other labs are unremarkable. I discussed his case with Neurology, MRI recommended and completed which shows a subacute evolving stroke in the right thalamus, I do think this is the cause for his left-sided numbness. Re-evaluated by Neurology, given that he has got this upcoming Watchman procedure no recommended changes to his anticoagulation, continue Plavix and Coumadin, she did switch him from Lipitor to Crestor so I have called that prescription in. I also added on at her recommendation an A1c as she was not able to see 1 in their system. This is pending, given that the patient is been here for quite some time already inward let him go home, if this comes back abnormal will touch base with him and he would need to follow that up with primary care. He is also been instructed to keep an eye on his blood pressures and follow that up with primary care as well, in an effort to maximize risk factor management. Return any time for worsening neurologic symptoms or new concerns. Otherwise, he will follow-up through the [facility] system for ongoing care. Diagnosis: Ischemic stroke. History of atrial fibrillation. Vital Signs Vital signs: Initial Vital Signs Temperature 98.3 F 08/26/25 11:01 Temperature Source Temporal Artery Scan 08/26/25 11:01 Pulse Rate 81 08/26/25 11:01 Pulse Rhythm Regular 08/26/25 11:01 Pulse Strength 3+ Normal 08/26/25 11:01 Respiratory Rate 18 08/26/25 11:01 Blood Pressure 146/95 H 08/26/25 11:01 Blood Pressure Mean 112 H 08/26/25 11:01 Blood Pressure Position Sitting 08/26/25 11:01 Pulse Oximetry 97 08/26/25 11:01 Oxygen Delivery Method Room Air 08/26/25 11:01 Vital Signs Temperature 98.3 F 08/26/25 11:01 Pulse Rate 81 08/26/25 11:01 Respiratory Rate 18 08/26/25 11:01 Blood Pressure 146/95 H 08/26/25 11:01 Pulse Oximetry 97 08/26/25 11:01 Oxygen Delivery Method Room Air 08/26/25 11:01 Temperature 97.3 F L 08/26/25 16:02 Pulse Rate 77 08/26/25 16:02 Respiratory Rate 19 08/26/25 16:02 Blood Pressure 164/110 H 08/26/25 16:02 Pulse Oximetry 98 08/26/25 16:02 Oxygen Delivery Method Room Air 08/26/25 16:02 Medical Decision Making Lab Data Lab results reviewed: Yes I reviewed the patient's lab results Labs: Lab Results 08/26/25 08/26/25 08/26/25 Range/Units 11:15 11:40 15:21 WBC 5.72 (4.50-11.00) K/uL RBC 5.15 (4.30-5.90) m/uL Hgb 15.3 (13.5-17.5) gm/dL Hct 44.7 (37.0-53.0) % MCV 87 (80-100) fL MCH 30 (26-34) pg MCHC 34 (32-36) gm/dL RDW Coeff of Denise 15.0 (11.5-15.5) % Plt Count 250 (140-440) K/uL Neut % (Auto) 69.8 (42.0-72.0) % Lymph % (Auto) 19.8 L (20-44) % Izard % (Auto) 8.2 (0.0-11.0) % Eos % (Auto) 1.2 (0.0-7.0) % Baso % (Auto) 0.7 (0.0-3.0) % Neut # (Auto) 3.99 (1.7-7.0) K/uL Lymph # (Auto) 1.10 (0.90-2.90) K/uL Izard # (Auto) 0.50 (0.00-0.90) K/UL Eos # (Auto) 0.07 (0.00-0.50) K/uL Baso # (Auto) 0.04 (0.00-0.30) K/uL Abs Immat Gran (auto) 0.02 (0.00-0.30) K/uL Imm/Tot Granulo (auto) 0.3 % INR 2.40 H (0.91-1.10) Sodium 135 (135-149) mmol/L Potassium 4.5 (3.6-5.1) mmol/L Chloride 103 (96-114) mmol/L Carbon Dioxide 24 (20-32) mmol/L Anion Gap 8 (7-15) mEq/L BUN 13 (7-30) mg/dL Creatinine 0.8 (0.5-1.5) mg/dL Estimated GFR 94 ml/min Glucose 102 (60-115) mg/dL Hemoglobin A1c 5.6 (0-5.6) % Calcium 9.4 (8.4-10.6) mg/dL Magnesium 1.9 (1.5-2.6) mg/dL Total Bilirubin 0.8 (0.1-1.5) mg/dL AST 31 (12-35) U/L ALT 30 (4-50) U/L Alkaline Phosphatase 83 (40-150) U/L POC Troponin I High Sensi 53.3 H* 52.7 H* (2.9-28.0) pg/mL Total Protein 7.9 (6.0-8.3) g/dL Albumin 4.7 (3.3-5.0) g/dL Imaging Data MR Brain: Attestation: I have reviewed the pertinent imaging results. Radiologist's impression: Patient: BETHANIE VALVERDE Facility: [facility] RIS Site . Site : 1950 Study: MRI-Head Brain w/o-08/26/2025 3:25:27 PM Ordering Physician: Ruchi Bunch Final Report: Indication: Left-sided numbness Technique: Multiplanar, multisequence MR images of the brain were obtained without the administration of IV contrast. Comparison: CT head August 26, 2025 and 04/24/2022 MRI brain Findings: On midline sagittal T1 images there are preserved flow voids within the sagittal sinuses. The corpus callosum is preserved in signal and contour. The pituitary gland is unremarkable without evidence of remodeling of the sella turcica. There is no significant cerebellar tonsillar ectopia. On diffusion-weighted sequences, there is punctate focal subacute diffusion restriction within the right thalamus. Additional area of likely T2 shine through is appreciated within the left frontal lobe coughlin radiata white matter. There is global cortical atrophy with sulcal widening and ex vacuo dilatation of the lateral ventricles. There are old lacunar changes of the basal ganglia and centrum semiovale white matter. The remaining brain parenchyma is preserved in signal intensity for age. The flow voids at the skull base are unremarkable. The orbits and their contents are within normal limits. There is minimal chronic mucosal thickening seen throughout the paranasal sinuses. The mastoid air cells are clear. Impression: 1. Demonstration of an evolving subacute lacunar infarct within the right thalamus. No evidence of large territorial infarct. 2. Otherwise, stable age-related and chronic small-vessel disease changes of the brain without additional acute intracranial abnormality. Dictated by Rodrigo Seo MD @ 08/26/2025 3:44:[address] brain, CT angiograms: Attestation: I have reviewed the pertinent imaging results. Radiologist's impression: Patient: BETHANIE VALVERDE Facility: [facility] RIS Site . Site : 1950 Study: CT-Head Angio 95CC ISOVUE 370 NON ACUTE-08/26/2025 12:56:30 PM Ordering Physician: Ruchi Bunch Preliminary Report: The skull base internal carotid arteries are patent. Patent anterior cerebral arteries. Patent middle cerebral arteries. Patent basilar artery and bilateral posterior cerebral arteries. Dictated by Rodrigo Seo MD @ 08/26/2025 1:08:51 PM Read by: Rodrigo Seo MD @08/26/2025 1:08:58 PM Patient: Bethanie Valverde MR#: [id number] : 1950 Acct:[id number] Loc: ED Service Date: 08/26/[address]: Ordering Physician: Alivia Hopper M.D. Date of Service: 08/26/25 Procedure(s): CT head/brain wo con Accession Number(s): [id number] cc: Alivia Hopper M.D.; Mark Finch M.D.~ For Patients: As a result of the Cures Act, medical imaging exams and procedure reports are released immediately into your electronic medical record. You may view this report before your referring provider. If you have questions, please contact your health care provider. Indication: Left-sided numbness, history of TIA Technique: Volumetric multidetector CT images of the head were obtained without the administration of low osmolar intravenous contrast. Comparison: CT head without contrast January 05, 2025 Findings: There is no intra-axial or extra-axial fluid collection. There is no mass effect or midline shift. There is age-related cortical atrophy with mild sulcal widening and ex vacuo dilatation of the lateral ventricles. There are chronic small vessel disease changes in the subcortical and periventricular white matter without lost reilly-white differentiation. The orbits and their contents are grossly within normal limits. The bony calvarium is grossly intact. The paranasal sinuses are clear. The mastoid air cells are well aerated. Impression: 1. Age-related changes of the brain without acute intracranial abnormality. Please note that all CT scans at this facility use dose modulation, iterative reconstruction, and/or weight-based dosing when appropriate to reduce radiation dose to as low as reasonably achievable. Dictated by Rodrigo Seo MD @ 08/26/2025 1:06:54 PM Discharge Plan Discharge Clinical Impression: Cerebrovascular accident Patient Disposition: Home, Self-Care Condition: Stable Instructions: Ischemic Stroke (DC) Additional Instructions: The neurologist has recommended that we switch you from Lipitor to Crestor, so I have sent that prescription in for you. Otherwise continue your current medications, follow up as planned regarding Watchman procedure. Return any time if you have acute new neurologic symptoms. Try to check your blood pressure a couple of times a day and keep track of the numbers so that you and your primary doctor can make sure your blood pressure control is optimized. I have ordered a hemoglobin A1c, this is a blood test that we used to screen for diabetes or prediabetes. If this is abnormal, we will call you. Prescriptions: New rosuvastatin [Crestor] 40 mg tablet 40 mg PO DAILY Qty: 30 2RF No Action warfarin [Jantoven] 5 mg tablet 5 mg PO DAILY Patient Comments: TAKE 2 TABLETS BY MOUTH EVERY TUESDAY AND 1.5 TABLETS BY MOUTH ALL OTHER DAYS IN EVENING OR DIRECTED nortriptyline 10 mg capsule 20 mg PO DAILY Patient Comments: TAKE TWO CAPSULES BY MOUTH AT BEDTIME metoprolol succinate 25 mg tablet extended release 24 hr 25 mg PO DAILY Patient Comments: TAKE 1 TABLET BY MOUTH ONCE DAILY escitalopram oxalate 20 mg tablet 20 mg PO DAILY Patient Comments: TAKE ONE TABLET BY MOUTH EVERY DAY IN THE MORNING atorvastatin 40 mg tablet 40 mg PO DAILY isosorbide mononitrate 30 mg tablet extended release 24 hr 30 mg PO DAILY sertraline 100 mg tablet 100 mg PO QAM clopidogrel 75 mg tablet 75 mg PO DAILY losartan 25 mg tablet 25 mg PO DAILY ondansetron HCl 4 mg tablet 4 mg PO Q6H Qty: 10 0RF meclizine 25 mg tablet 25 mg PO QID Qty: 20 0RF Follow Up/Referrals: Mark Finch MD [Primary Care Provider, Family Practice] Stand Alone Forms: [employer] Info Instructions
[2025-08-26 11:53] LABS: Hematocrit* 44.7 % (37.0-53.0); Hemoglobin* 15.3 gm/dL (13.5-17.5); Immature Granulocytes Abs Auto 0.02 K/uL (0.00-0.30); Immature Granulocytes Pct Auto 0.3 %; Mean Corpuscular HGB Conc 34 gm/dL (32-36); Mean Corpuscular Hemoglobin 30 pg (26-34); Mean Corpuscular Volume 87 fL (80-100); RDW Coefficient of Variation % 15.0 % (11.5-15.5); Red Blood Count* 5.15 m/uL (4.30-5.90); White Blood Count* 5.72 K/uL (4.50-11.00)
[2025-08-26 11:57] LABS: Lymphocytes Absolute Auto 1.10 K/uL (0.90-2.90); Slide Review Reflex No
[2025-08-26 12:17] LABS: Albumin* 4.7 g/dL (3.3-5.0); Chloride* 103 mmol/L (96-114); Sodium* 135 mmol/L (135-149)
[2025-08-26 12:18] LABS: Potassium* 4.5 mmol/L (3.6-5.1)
[2025-08-26 12:19] LABS: INR 2.40 (0.91-1.10); Prothrombin Time 27.3 Seconds
[2025-08-26 12:20] LABS: Alanine Aminotransferase* 30 U/L (4-50); Alkaline Phosphatase* 83 U/L (40-150); Anion Gap 8 mEq/L (7-15); Aspartate Amino Transferase* 31 U/L (12-35); Bilirubin Total* 0.8 mg/dL (0.1-1.5); Blood Urea Nitrogen* 13 mg/dL (7-30); Calcium* 9.4 mg/dL (8.4-10.6); Carbon Dioxide* 24 mmol/L (20-32); Creatinine* 0.8 mg/dL (0.5-1.5); Estimated Glomerular Filt Rate 94 ml/min; Glucose* 102 mg/dL (60-115); Total Protein* 7.9 g/dL (6.0-8.3)
--- NOTE | 2025-08-26 13:43 | CRLHL7_ITS ---
For Patients: As a result of the Century Cures Act, medical imaging exams and procedure reports are released immediately into your electronic medical record. You may view this report before your referring provider. If you have questions, please contact your health care provider. Indication: Left-sided numbness Technique: Multiplanar, multisequence MR images of the brain were obtained without the administration of IV contrast. Comparison: CT head August 26, 2025 and 04/24/2022 MRI brain Findings: On midline sagittal T1 images there are preserved flow voids within the sagittal sinuses. The corpus callosum is preserved in signal and contour. The pituitary gland is unremarkable without evidence of remodeling of the sella turcica. There is no significant cerebellar tonsillar ectopia. On diffusion-weighted sequences, there is punctate focal subacute diffusion restriction within the right thalamus. Additional area of likely T2 shine through is appreciated within the left frontal lobe coughlin radiata white matter. There is global cortical atrophy with sulcal widening and ex vacuo dilatation of the lateral ventricles. There are old lacunar changes of the basal ganglia and centrum semiovale white matter. The remaining brain parenchyma is preserved in signal intensity for age. The flow voids at the skull base are unremarkable. The orbits and their contents are within normal limits. There is minimal chronic mucosal thickening seen throughout the paranasal sinuses. The mastoid air cells are clear. Impression: 1. Demonstration of an evolving subacute lacunar infarct within the right thalamus. No evidence of large territorial infarct. 2. Otherwise, stable age-related and chronic small-vessel disease changes of the brain without additional acute intracranial abnormality. Dictated by Rodrigo Seo MD @ 08/26/2025 3:44:15 PM (Electronically Signed)
[2025-08-26 13:56] VITALS: BP 148/100; PULSE 72; RESP 18; TEMP 36.4; O2SAT 98
[2025-08-26 16:02] VITALS: BP 164/110; PULSE 77; RESP 19; TEMP 36.3; O2SAT 98
== END 2025-08-26 17:00 | disposition home or self-care (01) ==
PROVIDERS: Emergency Provider Emergency Medicine; PCP Family Medicine
DX: I63.81 Other cerebral infarction due to occlusion or stenosis of small artery (principal); R20.8 Other disturbances of skin sensation; Z86.79 Personal history of other diseases of the circulatory system; Z79.01 Long term (current) use of anticoagulants; Z79.899 Other long term (current) drug therapy
CPT/HCPCS: 36415; 70450; 70496; 70498; 70551; 80053; 83036; 83735; 84484; 85025; 85610; 93005; 99284; 99285; Q9967